=== PATIENT | male | born 1945 | race African-American/Black ===

== ENCOUNTER 2017-09-14 05:48 | Inpatient (IN) | payer MEDICARE ==
[2017-09-13 15:19] VITALS: BMI 25.0
[2017-09-14] MEDS ORDERED: CEFAZOLIN/Water 2 GM/20 ML SYRINGE ONE (06:33)
[2017-09-14] MEDS ORDERED: Protamine Sulfate 50 MG/5 ML VIAL ONE ×3 (06:38→14:55)
[2017-09-14] MEDS ORDERED: Heparin 5,000 UNITS/ML VIAL ONE (06:38)
[2017-09-14 06:51] LABS: #Basophils 0.1 thou/uL (0.0-0.2); #Eosinphils 0.3 thou/uL (0.0-0.7); #Lymphocytes 1.8 thou/uL (1.20-3.40); #Monocytes 0.6 thou/uL (0.11-0.59); #Neutrophils 7.1 thou/uL (1.40-6.50); %Basophils 0.5 % (0.0-1.0); %Eosinophils 2.8 % (0.0-10.0); %Lymphocytes 18.2 % (21.0-51.0); %Monocytes 5.7 % (0.0-10.0); %Neutrophils 72.7 % (42.0-75.0); Hemoglobin 11.9 g/dL (14.0-18.0); Mean Corpuscular HGB CONC 32.6 g/dL (32.0-36.0); Mean Corpuscular Volume 88.8 fl (80.0-94.0); Mean Platelet Volume 8.3 fL (7.4-10.4); Platelet Count 261 thou/uL (130-400); RBC Distribution Width 11.6 % (11.5-14.5); White Blood Cell (WBC) Count 9.8 thou/uL (4.8-10.8)
[2017-09-14 07:03] LABS: INR-International Normal Ratio 1.1; Prothrombin Time 14.5 SEC (12.0-14.7)
[2017-09-14 07:04] LABS: PTT 41.8 SEC (22.9-36.1)
[2017-09-14 07:15] LABS: Anion Gap 14 mmol/L (10-20); BUN (Urea Nitrogen) 13 mg/dL (8.4-25.7); Calc. Creatinine Clearance 52 mL/min (70-130); Calcium 9.4 mg/dL (7.8-10.44); Carbon Dioxide 25 mmol/L (23-31); Chloride 103 mmol/L (98-107); Estimated GFR-MDRD 64; Glucose 110 mg/dL (83-110); Sodium 138 mmol/L (136-145)
[2017-09-14] MEDS ORDERED: Fentanyl 100 MCG/2 ML VIAL ONE ×3 (07:20→11:09)
[2017-09-14] MEDS ORDERED: metroNIDAZOLE 500 MG/100 ML BAG ONE (07:20)
--- NOTE | 2017-09-14 07:58 | RAD ---
PA AND LATERAL CHEST: History: Pre-operative evaluation. FINDINGS: Comparison made with 2006. The heart size is normal. The aorta is tortuous. No confluent areas of consolidation, pneumothorax, o r pleural effusion are seen. Degenerative change of the spine. IMPRESSION: No radiographic evidence of acute cardiopulmonary process. POS: ALAYNAH
[2017-09-14] MEDS ORDERED: Heparin 10,000 UNITS/1 ML VIAL ONE (07:59)
[2017-09-14] MEDS ORDERED: Naloxone HCl 0.4 mg/ml Vial IV PRN (09:56)
[2017-09-14] MEDS ORDERED: diphenhydrAMINE 50 MG/ML VIAL IM PRN (09:56)
[2017-09-14] MEDS ORDERED: Promethazine HCl 25 MG/ML VIAL SLOW IVP PRN (09:56)
[2017-09-14] MEDS ORDERED: diphenhydrAMINE 25 MG CAP PO PRN (09:56)
[2017-09-14] MEDS ORDERED: Fentanyl 5000 MCG/250 ML CADD IVPB PRN (09:56)
[2017-09-14] MEDS ORDERED: Ondansetron HCl/PF 4 MG/2 ML Vial IVP PRN ×2 (09:56)
[2017-09-14] MEDS ORDERED: Promethazine HCl 25 MG/ML VIAL IM PRN ×3 (09:56→13:04)
[2017-09-14] MEDS ORDERED: Zolpidem Tartrate 5 MG TAB PO PRN (09:56)
[2017-09-14] MEDS ORDERED: diphenhydrAMINE 50 MG/ML VIAL IVP PRN (09:56)
[2017-09-14] MEDS ORDERED: Morphine Sulfate 2 MG/ML SYRINGE SLOW IVP PRN (09:56)
[2017-09-14] MEDS ORDERED: Communication Order-Pharmacy FS SCH (10:00)
--- NOTE | 2017-09-14 11:40 | OP ---
DATE OF OPERATION: 09/14/2017 PREOPERATIVE DIAGNOSIS: Peripheral vascular disease. POSTOPERATIVE DIAGNOSIS: Peripheral vascular disease. PROCEDURES: 1. Aorto left external iliac and right common femoral artery bypass utilizing a 16 x 8 Hemashield bi furcated graft. 2. Right common femoral and profunda femoris endarterectomy. SURGEON: Scott Miranda M.D. and Fransisco De La Torre M.D. ANESTHESIA: General endotracheal. ESTIMATED BLOOD LOSS: 200 mL. FLUIDS: 2 liters of crystalloid. CELL SAVER: None. TRANSFUSIONS: None. DESCRIPTION OF PROCEDURE: After consent was obtained, the patient was brought to the operating room and placed in the supine position on the operating room table. Appropriate anesthetic monitor was pl aced and general endotracheal anesthesia induced. Abdomen and groins were prepped and draped in usua l sterile fashion. Right femoral artery was approached in a vertical fashion. The common femoral, p rofunda femoris, and superficial femoral arteries were serially exposed. A tunnel was begun under th e inguinal ligament. Midline abdominal incision was created from xiphoid to lower abdomen. Dissecti on through the fascia was obtained with electrocautery. Peritoneum was sharply entered and this tatum toneal incision extended for the full length of the fascial incision. Bookwalter retractor was used for retraction. The abdomen was explored. There was no colonic mass. There were no gallstones. Li randy had no mass. Small bowel was delivered to the right. The duodenum was dissected off the anterio r surface of the aorta with a low electrocautery. The aorta was exposed circumferentially at the lev el of the renal arteries. The exposure was then carried down toward the aortic bifurcation. The lef t iliac artery was exposed down to its bifurcation. A tunnel was created from the groin up to the ab dominal cavity with ring forceps. The patient was given 10,000 units of heparin. After 3 minutes, t he aorta was clamped. Distal aorta was clamped. The aorta was divided just above the inferior mesen teric artery and closed with running 3-0 Prolene suture. The proximal aorta was heavily diseased. T he disease was cleared and the aorta burped. A 16 x 8 Hemashield graft was selected and cut to appro priate bevel to shape. This was sewn in place with running 4-0 Prolene suture. At completion, there was good hemostasis. The aorta was again burped and allowed to flush through the graft limbs. The graft limbs were then flushed. Left limb was cut to appropriate length to allow for distal bypass at the iliac bifurcation. The iliac artery was divided and the proximal iliac closed with running 4-0 Prolene suture. Anastomosis was created with a running 4-0 Prolene suture. Two sutures were placed for hemostasis. Flow was reestablished to the left leg. The right limb of the graft was tunneled in to the groin. Common femoral artery was opened and extended down across the profunda. Endarterectom y was performed with mosquito hemostats. A good tapered distal endpoint was obtained in the profunda . A running 5-0 Prolene anastomosis was created between the graft and femoral artery. At completion , 2 sutures were placed for hemostasis. Flow was reestablished to the right leg. Protamine was admi nistered. Hemostasis was ensured. The groin was closed in layers and Dermabond applied to the skin. The graft was re-retroperitonealized with running 2-0 Vicryl. The abdomen was irrigated. Fascia w as closed with loop #1 PDS suture and then wound closed in layers. Dermabond was applied to the skin . The patient was awakened, extubated, and transferred to the recovery room in stable condition. Ne edle, sponge, and instrument counts were all reported as correct.
[2017-09-14] MEDS ORDERED: Fentanyl CADD 250 ML ONE (11:53)
[2017-09-14] MEDS ORDERED: Acetaminophen 325 MG TAB PO PRN (13:04)
[2017-09-14] MEDS ORDERED: DOPamine 400 MG/D5W 250 ML 250 ML IVPB PRN (13:04)
[2017-09-14] MEDS ORDERED: Nitroglycerin 50 MG/250 ML BOT 250 ML IVPB PRN (13:04)
[2017-09-14] MEDS ORDERED: Promethazine HCl 25 MG/ML VIAL PR PRN (13:04)
[2017-09-14] MEDS ORDERED: Ondansetron HCl/PF 4 MG/2 ML Vial ONE (14:55)
[2017-09-14] MEDS ORDERED: PROPOFOL 200 MG/20 ML VIAL ONE (14:55)
[2017-09-14] MEDS ORDERED: Lidocaine 1% PF 5 ML VIAL ONE (14:55)
[2017-09-14] MEDS ORDERED: PHENYLEPHRINE-NS 100 MCG/ML 10 ML SYRINGE ONE (14:55)
[2017-09-14] MEDS ORDERED: Heparin 10,000 UNITS/ 10 ML VIAL ONE (14:55)
[2017-09-14] MEDS ORDERED: ePHEDrine/0.9% NaCl/PF SYRINGE 50 mg/10 ml ONE (14:55)
[2017-09-14] MEDS ORDERED: Dexamethasone 20 MG/5 ML VIAL ONE (14:55)
[2017-09-14] MEDS ORDERED: Ketorolac Tromethamine 30 MG/ML VIAL ONE (14:55)
[2017-09-14] MEDS ORDERED: Glycopyrrolate 0.2 MG/ML 5 ML SYRINGE ONE (14:55)
[2017-09-14] MEDS: D5 1/2 NS w/20 mEq KCL 1,000 ML IV SCH ×2 (16:08→22:54)
[2017-09-14] MEDS: CEFAZOLIN/Water 2 GM/20 ML SYRINGE SLOW IVP SCH ×2 (16:09→21:04)
[2017-09-15 05:34] LABS: #Lymphocytes 1.3 thou/uL (1.20-3.40); #Monocytes 0.9 thou/uL (0.11-0.59); %Basophils 0.1 % (0.0-1.0); %Eosinophils 0.1 % (0.0-10.0); %Lymphocytes 12.9 % (21.0-51.0); %Monocytes 8.8 % (0.0-10.0); %Neutrophils 78.2 % (42.0-75.0); Hemoglobin 10.2 g/dL (14.0-18.0); Mean Corpuscular HGB CONC 32.2 g/dL (32.0-36.0); Mean Corpuscular Hemoglobin 28.8 pg (27.0-31.0); Mean Corpuscular Volume 89.3 fl (80.0-94.0); Mean Platelet Volume 8.2 fL (7.4-10.4); Platelet Count 193 thou/uL (130-400); RBC Distribution Width 11.6 % (11.5-14.5); Red Blood Cell (RBC) Count 3.53 mill/uL (4.70-6.10); White Blood Cell (WBC) Count 10.3 thou/uL (4.8-10.8)
[2017-09-15 05:45] LABS: Anion Gap 10 mmol/L (10-20); BUN (Urea Nitrogen) 27 mg/dL (8.4-25.7); Calc. Creatinine Clearance 37 mL/min (70-130); Carbon Dioxide 26 mmol/L (23-31); Chloride 106 mmol/L (98-107); Estimated GFR-MDRD 43; Glucose 142 mg/dL (83-110); Potassium 4.9 mmol/L (3.5-5.1); Sodium 137 mmol/L (136-145)
[2017-09-15] MEDS: CEFAZOLIN/Water 2 GM/20 ML SYRINGE SLOW IVP SCH (06:22)
[2017-09-15] MEDS: HYDROcodone/Acetaminophen 5/325 mg Tablet PO PRN ×2 (08:12→17:58)
[2017-09-15] MEDS ORDERED: Sotalol HCl 80 MG TAB PO SCH ×2 (09:00→21:00)
--- NOTE | 2017-09-15 12:22 | PDOC.CTH ---
<AldairEleni - Last Filed: 09/15/17 12:42> Cardiology Progress Note - Subjective The pt seen and examined. No overnight events. No cardiac complaints. He is on Fentanyl DEPARTMENT STORE GENERAL MANAGER for post-op pain - Objective Vital Signs Temp Pulse Pulse Pulse Pulse Pulse Resp 09/15/17 11:00 66 69 66 66 09/15/17 09:31 68 09/15/17 08:00 98.9 F 68 16 09/15/17 07:00 98.9 F 09/15/17 03:00 98.4 F BP BP BP BP Pulse Ox Pulse Ox 09/15/17 11:00 151/68 H 155/67 H 192/84 H 169/75 H 95 09/15/17 09:31 09/15/17 08:00 96 09/15/17 07:00 09/15/17 03:00 Weight 164 lb 14.492 oz 09/14/17 09/15/17 09/16/17 06:59 06:59 06:59 Intake Total 1500 250 Output Total 750 30 Balance 750 220 - Physical Examination General/Neuro: alert & oriented x3 Neck: no JVD present Lungs: CTA Heart: other: Abdomen: soft Extremities: other: (2+ bilat dorsalis pedis, 1+ bilat popleteal;) - Telemetry Telemetry Rhythm: SR & intermitten Afib 60' - Labs Result Diagrams: 09/15/17 05:07 09/15/17 05:07 - Assessment/Plan 1. Severe PAD with S/P Aorto Lt external Iliac and Rt commond Fem Artery bypass & Rt common Fem and profunda femoris endarterectomy on 09/14/17 - stable with Fentaly DEPARTMENT STORE GENERAL MANAGER; managed by CV surgeon. 2. Paroxysmal Afib - SR with Intermittent Afib HR 60s. on ASA at this time. Asymptomatic. Cont. monitor on tele 3. HTN - Stable with current medication; cont. monitor 4. Hyperlipidemia - on Statin; 5. s/p Rt CEA in 2000 - stable; cont. monitor 6. JACE - BUN 27 and Cr 1.88; Instructed the pt to drink more fluid today; will check BMP tomorrow AM; MAR reviewed Review of Systems - Review of Systems Constitutional: reports: see HPI EENTM: reports: no symptoms reported Respiratory: reports: no symptoms reported Cardiac (ROS): reports: no symptoms reported ABD/GI: reports: no symptoms reported : reports: no symptoms reported Musculoskeletal: reports: see HPI <Jemal Hearn - Last Filed: 09/15/17 18:34> Cardiology Progress Note - Objective Vital Signs Temp Pulse Pulse Pulse Pulse Pulse Resp 09/15/17 11:00 66 69 66 66 09/15/17 09:31 68 09/15/17 08:00 98.9 F 68 16 09/15/17 07:00 98.9 F BP BP BP BP Pulse Ox Pulse Ox 09/15/17 11:00 151/68 H 155/67 H 192/84 H 169/75 H 95 09/15/17 09:31 09/15/17 08:00 96 09/15/17 07:00 Weight 164 lb 14.492 oz 09/14/17 09/15/17 09/16/17 06:59 06:59 06:59 Intake Total 1500 250 Output Total 750 30 Balance 750 220 - Labs Result Diagrams: 09/15/17 05:07 09/15/17 05:07 - Assessment/Plan Pt. seen and eval. by me. I agree with the A/P by the ART CRITIC. He continues to have some abd. pain and nausea post op.Occasional Afib. but mainly in NSR.Good left pedal pulse , right is still decreased.
[2017-09-15] MEDS: Ondansetron HCl/PF 4 MG/2 ML Vial IVP PRN (17:59)
[2017-09-15] MEDS: Atorvastatin Calcium 10 MG TAB PO SCH (22:06)
[2017-09-15] MEDS: Sotalol HCl 80 MG TAB PO SCH (22:06)
[2017-09-16 05:34] LABS: Anion Gap 9 mmol/L (10-20); BUN (Urea Nitrogen) 20 mg/dL (8.4-25.7); Calc. Creatinine Clearance 42 mL/min (70-130); Calcium 8.2 mg/dL (7.8-10.44); Carbon Dioxide 25 mmol/L (23-31); Chloride 105 mmol/L (98-107); Estimated GFR-MDRD 50; Glucose 95 mg/dL (83-110); Potassium 4.4 mmol/L (3.5-5.1); Sodium 135 mmol/L (136-145)
[2017-09-16] MEDS: Sotalol HCl 80 MG TAB PO SCH ×2 (09:04→20:58)
--- NOTE | 2017-09-16 09:57 | PDOC.CTH ---
<Eleni Quinteros - Last Filed: 09/16/17 09:54> Cardiology Progress Note - Subjective The pt seen and examined. No overnight events. No cardiac complaints. Still complains of pain at ABD with movement. - Objective Vital Signs Temp Pulse Resp BP BP Pulse Ox 09/16/17 09:04 107 H 158/72 H 09/16/17 05:00 98.1 F 105 H 20 141/67 H 92 L 09/16/17 00:10 80 18 137/67 09/15/17 22:06 85 137/64 Weight 163 lb 4.8 oz 09/15/17 09/16/17 09/17/17 06:59 06:59 06:59 Intake Total 1500 813 Output Total 750 980 Balance 750 -167 - Physical Examination General/Neuro: alert & oriented x3 Neck: no JVD present Lungs: CTA Heart: other: (irregualr) Abdomen: soft Extremities: other: (2+ pulses BLE;) - Telemetry Telemetry Rhythm: Afib/Aflutter HR 90-120s - Labs Result Diagrams: 09/15/17 05:07 09/16/17 04:21 - Assessment/Plan 1. Severe PAD with S/P Aorto Lt external Iliac and Rt common Fem Artery bypass & Rt common Fem and profunda femoris endarterectomy on 09/14/17 - stable with Fentaly INFORMATION RESOURCES DIRECTOR; managed by CV surgeon. 2. Paroxysmal Afib - AFib/AFlutter with HR 90-120s since 0300 this AM; Increase Stalol from 80mg BID to 120mg BID; on ASA at this time. Asymptomatic. Cont. monitor on tele; Refer to EP 3. HTN - Stable with current medication; cont. monitor 4. Hyperlipidemia - on Statin; 5. s/p Rt CEA in 2000 - stable; cont. monitor 6. JACE - Cr 1.65 from 1.88 yesterday; Instructed the pt to drink more fluid today; MAR reviewed Review of Systems - Review of Systems EENTM: reports: no symptoms reported Respiratory: reports: no symptoms reported Cardiac (ROS): reports: no symptoms reported ABD/GI: reports: see HPI : reports: no symptoms reported Musculoskeletal: reports: no symptoms reported <Jemal Hearn - Last Filed: 09/16/17 17:22> Cardiology Progress Note - Objective Vital Signs Pulse BP 09/16/17 09:04 107 H 158/72 H Weight 163 lb 4.8 oz 09/15/17 09/16/17 09/17/17 06:59 06:59 06:59 Intake Total 1500 813 Output Total 750 980 Balance 750 -167 - Labs Result Diagrams: 09/15/17 05:07 09/16/17 04:21 - Assessment/Plan The pt. was seen and eval. by me. I agree with the a/P by the [employer] P[employer]. He remains in atrial fib. despite the increase in Sotalol. I will plan for Lovenox this PM and cardioversion in AM if he does not convert over night.
[2017-09-16] MEDS ORDERED: Sotalol HCl 80 MG TAB PO SCH (10:00)
[2017-09-16] MEDS: Atorvastatin Calcium 10 MG TAB PO SCH (20:58)
[2017-09-16] MEDS: Enoxaparin Sodium 80 MG/0.8 ML SYRINGE SC SCH (20:59)
[2017-09-17] MEDS: hydrALAZINE 20 MG/ML VIAL SLOW IVP PRN ×2 (00:15→21:42)
[2017-09-17 05:14] LABS: Hemoglobin 9.2 g/dL (14.0-18.0); Platelet Count 157 thou/uL (130-400)
--- NOTE | 2017-09-17 06:16 | CON ---
ELECTROPHYSIOLOGY CONSULTATION REPORT DATE OF CONSULTATION: 09/16/2017 REFERRING PHYSICIAN: Dori Hearn M.D. [facility]. His problems are: 1. Paroxysmal atrial fibrillation. A. Prior suppression of sotalol and Eliquis. B. History of JENNIE guided cardioversion on 02/05/2016. C. Recurrent atrial fibrillation/flutter noted postoperatively on current admission after peripheral bypass surgery. 2. History of preserved LVEF with LVEF of 60% to 65%, no significant valvular heart disease, no thrombus, no prior JENNIE. 3. History of nonocclusive coronary disease by left heart catheterization in . 4. Peripheral vascular disease with history of 80% right internal carotid artery stenosis, status post right carotid endarterectomy and now status post right femoral bypass surgery. 5. Acute kidney injury with BUN 27, creatinine 1.88. ALLERGIES: CODEINE and NIACIN. MEDICATIONS: Prior to this admission reveals sotalol 80 mg in the morning and 40 mg in the afternoon, losartan 1 tablet daily, magnesium 400 mg daily, apixaban one tablet twice a day, zolpidem, Lipitor, cholecalciferol, and amlodipine. SUBJECTIVE: Mr. Whyte is here after an elective peripheral bypass surgery by Dr. Miranda on the . He tolerated the surgery well and now recovering on the floor still requiring opiates for pain control. His rhythm is oscillating between atrial fibrillation/flutter and sinus rhythm. I have consulted Dr. Hearn on the recurrent atrial fibrillation/flutter. The patient is currently not markedly symptomatic. Denies palpitations. Denies chest pain. No fever, chills, cough. Again, he is resume opiates by pump. He has no PND, orthopnea, lower extremity edema, or fluid overload. No fever, chills or cough. REVIEW OF SYSTEMS: The rest of the 12 point system otherwise unremarkable. PAST MEDICAL HISTORY: As above. SOCIAL HISTORY: The patient denies smoking, EtOH or drug use. FAMILY HISTORY: Noncontributory. OBJECTIVE DATA: VITAL SIGNS: Blood pressure currently 158/72, heart rate 107, respirations 20, temperature 98.1 degrees Fahrenheit. GENERAL: He is alert and oriented man in no apparent distress. NECK: Supple. Jugular veins are not distended. CHEST: Coarse without crackles. CARDIAC: Heart sounds are irregularly irregular. S1 and S2 are variable. No murmur or gallop. ABDOMEN: Benign. Bowel sounds positive. EXTREMITIES: Lower extremities without edema, clubbing or cyanosis. The aortobifemoral bypass graft site is healing well. DATABASE: The EKG is reviewed, initially reveals sinus rhythm with QTC is at 470 milliseconds. Subsequent EKG reveals atrial fibrillation/flutter both noted. Rates are varying between 100 and 110. LABORATORY DATA: White count is 10.3, hemoglobin 10.2, platelet count is 193. INR is 1.1 on the 30th. Sodium 135, potassium 4.4, BUN is 20, creatinine is 1.65 today. ASSESSMENT AND PLAN: Mr. Whyte is a pleasant 71-year-old man with prior history of peripheral vascular disease, preserved left ventricular function, paroxysmal atrial fibrillation, currently in for a peripheral bypass surgery. He has been previously suppressed well with sotalol, but had some recurrences when I saw him in the office back in 02/2017. At that point, he preferred to continue medical management and we continued sotalol therapy, although there is some reduced dose because of tendency for bradycardia. Now, he has done well, but now had more recurrences after his peripheral bypass surgery. At this point, likely atrial fibrillations provoked by the postop state. I agreed for increasing sotalol, although cautions should be paid to the borderline renal function. His EKG need to be checked again to avoid and then we will continue monitoring for proarrhythmia. For at least 2 days after the increase, continue anticoagulation has already initiated. If this effort fails , he could be considered for flecainde vs amiodarone vs or dofetilide after washout. Alternatively, we could just consider rate control in the interim. Issues could be prior history of tendency for bradycardia. This gentleman will be likely a reasonable candidate for pulmonary venous isolation after recovery from the bypass surgery. CHAI
[2017-09-17] MEDS: Sotalol HCl 80 MG TAB PO SCH ×2 (10:01→21:38)
[2017-09-17] MEDS: Enoxaparin Sodium 80 MG/0.8 ML SYRINGE SC SCH ×2 (10:01→21:40)
--- NOTE | 2017-09-17 10:41 | PRG ---
DATE OF SERVICE: 09/17/2017 REFERRING PHYSICIAN: Dr. Hearn SUBJECTIVE: Mr. Whyte seems to be doing fair this morning without new symptoms. He continues to have atrial fibrillation though which he has mild discomfort with. He does have still discomfort req uiring pain medications at the surgical site. OBJECTIVE: VITAL SIGNS: Blood pressure is 186/83, heart rate 102, respirations 20, temperature 98.3 degrees Fah renheit. GENERAL: Alert and oriented man in no apparent distress. NECK: Supple. Jugular veins not distended. CHEST: Coarse without crackles. CARDIOVASCULAR: Heart sounds are irregularly irregular. S1, S2, variable. No murmur or gallop. ABDOMEN: Benign. Bowel sounds positive. EXTREMITIES: Lower extremities without edema, clubbing or cyanosis. Right fem-pop site is in bandag es. LABORATORY DATA: The hemoglobin is 9.2 this morning. INR 1.1 on 09/14/2017 and electrolytes with so dium 135, BUN 20, creatinine 1.65, potassium 4.4. Telemetry strips reveals atrial fibrillation with occasional atrial flutter with more rapid rates, bu t this morning he converted to sinus rhythm, but after about an hour he is again back in atrial fibri llation with controlled ventricular rates. The EKGs reviewed reveals no significant prolongation, QTC around 470. ASSESSMENT AND PLAN: Mr. Whyte is a 71-year-old male with history of paroxysmal atrial fibrillati on, previously reasonably suppressed with sotalol low dose, hence he has bradycardic tendencies. On the other hand, now he has undergone an elective peripheral bypass grafting surgery. Postoperatively , he had more recurrence of atrial fibrillation. I do suspect the stress of the surgery might be a c ontributor, although natural progression of atrial fibrillation to a more persisting state also could be a possibility. PLAN: Options this point, continue to attempt to suppress him with initial medications sotalol altho ugh with careful monitoring of his renal function will be necessary, which is borderline, QTCs and to rsades like arrhythmias also might need to be monitored. Nevertheless, the increased sotalol so far has started to take effect with transient sinus rhythm. I discussed the case with Dr. Hearn, again this it is reasonable to attempt to decrease sotalol as abo ve. Alternative would be amiodarone after sotalol washout. Further alternative is allowing him to s deanne in atrial fibrillation with increased ventricular rate control with beta gurvinder or diltiazem as necessary. Later further efforts could be made on maintenance of sinus rhythm and he will likely req uire a pulmonary venous isolation procedure for that. Anticoagulation to resume as possible surgically. Thank you again for allowing me to participate in the care of this patient. We will have to see this gentleman back in the office in the near future.
--- NOTE | 2017-09-17 15:00 | PDOC.CTH ---
Cardiology Progress Note - Subjective No new complaints. Still in and out of sinus to Afib/flutter. No new events over night. - Objective Vital Signs Temp Pulse Resp BP Pulse Ox 09/17/17 11:30 98.8 F 86 20 151/67 H 97 09/17/17 10:01 102 H 09/17/17 08:30 98.3 F 102 H 20 186/83 H 95 09/17/17 08:00 98.8 F 86 20 95 09/17/17 04:29 98.0 F 77 18 142/64 H 97 Weight 163 lb 6.4 oz 09/16/17 09/17/17 09/18/17 06:59 06:59 06:59 Intake Total 813 720 366 Output Total 980 250 Balance -167 720 116 - Physical Examination General/Neuro: alert & oriented x3 Neck: carotid US brisk Lungs: CTA Heart: other: (irreg/irreg) Abdomen: soft - Labs Result Diagrams: 09/17/17 04:23 09/17/17 04:23 - Assessment/Plan 1. Severe PAD with S/P Aorto Lt external Iliac and Rt common Fem Artery bypass & Rt common Fem and profunda femoris endarterectomy on 09/14/17 - stable with Fentaly COMPOSITION MOLDER; managed by CV surgeon. 2. Paroxysmal Afib - AFib/AFlutter with HR 90-120s but overall is better controlled than yesterday.; Increase Sotalol from 80mg BID to 120mg BID; on ASA at this time. Asymptomatic. Cont. monitor on tele; 3. HTN - Stable with current medication; cont. monitor 4. Hyperlipidemia - on Statin; 5. s/p Rt CEA in 2000 - stable; cont. monitor 6. JACE - Cr 1.65 from 1.88 yesterday; Instructed the pt to drink more fluid today; MAR reviewed prob. home on Sat. I will see him back in the office is a couple weeks. Review of Systems - Review of Systems EENTM: reports: no symptoms reported Respiratory: reports: no symptoms reported Cardiac (ROS): reports: no symptoms reported ABD/GI: reports: other (tenderness post op.) Musculoskeletal: reports: no symptoms reported Skin: reports: no symptoms reported Neurological: reports: no symptoms reported
[2017-09-17] MEDS: Atorvastatin Calcium 10 MG TAB PO SCH (21:37)
[2017-09-17] MEDS: HYDROcodone/Acetaminophen 5/325 mg Tablet PO PRN ×2 (21:57→23:55)
[2017-09-18] MEDS ORDERED: Morphine 5 MG/ML SYRINGE SLOW IVP SCH (03:15)
[2017-09-18] MEDS: Ondansetron HCl/PF 4 MG/2 ML Vial IVP PRN (03:36)
[2017-09-18] MEDS ORDERED: Fentanyl 5000 MCG/250 ML CADD IVPB PRN (06:11)
[2017-09-18] MEDS ORDERED: fentaNYL Citrate/PF 2,000 MCG in Sodium Chloride 0.9% 60 ML IV PRN (06:45)
[2017-09-18] MEDS: Apixaban 5 MG TAB PO SCH ×2 (09:05→22:57)
[2017-09-18] MEDS: Sotalol HCl 80 MG TAB PO SCH ×2 (09:05→22:57)
[2017-09-18] MEDS: hydrALAZINE 20 MG/ML VIAL SLOW IVP PRN ×2 (09:06→15:43)
[2017-09-18] MEDS: Cyclobenzaprine 10 MG TAB PO PRN (09:06)
[2017-09-18] MEDS ORDERED: HYDROcodone/Acetaminophen 10/325 mg Tablet PO PRN (10:30)
[2017-09-18] MEDS: HYDROcodone/Acetaminophen 10/325 mg Tablet PO PRN ×4 (10:40→22:58)
[2017-09-18] MEDS ORDERED: Ketorolac Tromethamine 30 MG/ML VIAL IVP SCH (12:00)
--- NOTE | 2017-09-18 18:14 | MRI ---
MRI OF THE LUMBAR SPINE WITHOUT CONTRAST 09/18/17 COMPARISON: 03/14/03. HISTORY: Sudden onset of low back pain and bilateral hip pain. TECHNIQUE: Multiplanar and multisequence MRI images were obtained of the lumbar spine without contrast. FINDINGS: End plate degenerative changes are seen surrounding the L4-5 intervertebral disc. This disc has decre ase in height. The other intervertebral discs are normal in height. The vertebral bodies demonstrate normal alignment without fracture or subluxation. The conus medullaris terminates at normally at T12-L1. There is a nonspecific partially visualized fl uid collection in the lower abdomen and pelvis. This measures at least 7.2 x 7.2 x 3.4 cm in size. Th e paraspinal soft tissues are unremarkable. T12-L1: Unremarkable. L1-2: Unremarkable. L2-3: Unremarkable. L3-4: Unremarkable. L4-5: A small disc osteophyte complex is seen. No posterior facet arthrosis. No neural foraminal sten osis. Moderate bilateral neural foraminal stenosis. L5-S1: No significant bulge or protrusion. Mild right posterior facet arthrosis. No neural foraminal or central canal stenosis. IMPRESSION: 1. Degenerative changes of the lumbar spine as above, greatest at L4-5. 2. Nonspecific fluid collection in the pelvis. This is only partially visualized. A CT of the ab domen and pelvis with contrast is recommended for better evaluation. Code T POS: AMANDA
--- NOTE | 2017-09-18 19:29 | PDOC.PN ---
- Subjective Encounter Start Date: 09/18/17 Encounter Start Time: 19:27 Subjective: seen and examined at bedside.care discussed w Pt and . -: c/o sudden onset of sharp pain in R hip & back last night -: no relief w narcotics so far.started when he was pulled up in bed does not take any pain meds at home. currently pain is better after he took Rodeo. Was started on fentany [employer] which ahs since been stopped. Chart reviewd in detail. IM team consulted for pain management Is S/P Righr Fem-po bypass - Objective MAR Reviewed: Yes Vital Signs & Weight: Vital Signs (12 hours) Temp Pulse Resp BP BP Pulse Ox 09/18/17 15:43 68 09/18/17 15:17 98.3 F 68 16 175/77 H 95 09/18/17 11:40 97.6 F 68 16 166/74 H 97 09/18/17 08:59 97.6 F 68 16 97 09/18/17 08:57 97.7 F 67 18 196/85 H 97 Weight Weight 163 lb 6.4 oz Most Recent Monitor Data Heart Rate from ECG 66 NIBP 142/59 NIBP BP-Mean 79 Respiration from ECG 19 SpO2 93 I&O: 09/17/17 09/18/17 09/19/17 06:59 06:59 06:59 Intake Total 720 366 Output Total 250 Balance 720 116 Result Diagrams: 09/17/17 04:23 09/17/17 04:23 Additional Labs: Laboratory Tests 09/14/17 09/14/17 09/15/17 06:43 06:43 05:07 Hgb 11.9 L Creatinine 1.33 H 1.88 H 09/15/17 09/16/17 09/17/17 05:07 04:21 04:23 Hgb 10.2 L Creatinine 1.65 H 1.27 09/17/17 04:23 Hgb 9.2 L Creatinine Radiology Reviewed by me: Yes (MRI Thoracic & Lumbar spine-no acute chnages) Phys Exam - Physical Examination Constitutional: NAD HEENT: PERRLA, moist MMs, sclera anicteric, oral pharynx no lesions Neck: no nodes, no JVD, supple, full ROM Respiratory: no wheezing, no rales, no rhonchi, clear to auscultation bilateral Cardiovascular: RRR, no significant murmur, no rub, gallop Gastrointestinal: soft, non-tender, no distention, positive bowel sounds abdominal incision well healing Musculoskeletal: no edema, pulses present no swelling or tenderness/erythema R hip or spine Neurological: non-focal, normal sensation, moves all 4 limbs Psychiatric: normal affect, A&O x 3 Skin: no rash Dx/Plan (1) Acute back pain Code(s): M54.9 - DORSALGIA, UNSPECIFIED Status: Acute Qualifiers: Back pain location: low back pain Back pain laterality: right (2) JACE (acute kidney injury) Code(s): N17.9 - ACUTE KIDNEY FAILURE, UNSPECIFIED Status: Acute (3) Blood loss anemia Code(s): D50.0 - IRON DEFICIENCY ANEMIA SECONDARY TO BLOOD LOSS (CHRONIC) Status: Acute (4) Atrial flutter Code(s): I48.92 - UNSPECIFIED ATRIAL FLUTTER Status: Chronic Comment: controlled on Sotalol.on Eliquis.cardiology following.EP following (5) PVD (peripheral vascular disease) Code(s): I73.9 - PERIPHERAL VASCULAR DISEASE, UNSPECIFIED Status: Acute (6) S/P femoral-popliteal bypass surgery Code(s): Z95.828 - PRESENCE OF OTHER VASCULAR IMPLANTS AND GRAFTS Status: Acute - Plan PT/OT, out of bed/ambulate, DVT proph w/SCDs MRI done & results reviewe. no acute pathology.suspect sciatica Vs myalgia -: will cont Flexeril w Rodeo for now & DC all other narcotics/ -: will consult Pain medicine for pain management. -: cont rest of meds as per below. -: will follow. Monitor H/H. * .? may benefit from Neurontin if nerve pain.will defer to pain Medicine. Review of Systems - Review of Systems Constitutional: negative: fever, chills, sweats, weakness, malaise, other ENT: negative: Ear Pain, Ear Discharge, Nose Pain, Nose Discharge, Nose Congestion, Mouth Pain, Mouth Swelling, Throat Pain, Throat Swelling, Other Respiratory: negative: Cough, Dry, Shortness of Breath, Hemoptysis, SOB with Excertion, Pleuritic Pain, Sputum, Wheezing Cardiovascular: negative: chest pain, palpitations, orthopnea, paroxysmal nocturnal dyspnea, edema, light headedness, other Gastrointestinal: negative: Nausea, Vomiting, Abdominal Pain, Diarrhea, Constipation, Melena, Hematochezia, Other Genitourinary: negative: Dysuria, Frequency, Incontinence, Hematuria, Retention , Other Musculoskeletal: Back Pain. negative: Neck Pain, Shoulder Pain, Arm Pain, Hand Pain, Leg Pain, Foot Pain, Other Skin: negative: Rash, Lesions, David, Bruising, Other Neurological: negative: Weakness, Numbness, Incoordination, Change in Speech, Confusion, Seizures, Other - Medications/Allergies Allergies/Adverse Reactions: Allergies Allergy/AdvReac Type Severity Reaction Status Date / Time codeine Allergy Verified 09/13/17 15:17 niacin Allergy Verified 09/13/17 15:19 Medications: Current Medications Acetaminophen (Tylenol) 650 mg PO Q4H PRN PRN Reason: Fever > 101.5,RAY, or mild pain Hydrocodone Bitart/Acetaminophen ([place] 10/325) 1 tab PO Q4H PRN PRN Reason: PAIN SCALE 1-4 Hydrocodone Bitart/Acetaminophen ([place] 10/325) 2 tab PO Q4H PRN PRN Reason: PAIN SCALE 5-10 Last Admin: 09/18/17 18:54 Dose: 2 tab Albuterol/Ipratropium (Duoneb) 3 ml NEB [id number] PRN PRN Reason: Wheezing Apixaban (Eliquis) 5 mg PO BID [facility] Last Admin: 09/18/17 09:05 Dose: 5 mg Aspirin (Aspirin Chewable) 81 mg PO QAM [facility] Last Admin: 09/18/17 09:05 Dose: 81 mg Atorvastatin Calcium (Lipitor) 10 mg PO HS [facility] Last Admin: 09/17/17 21:37 Dose: 10 mg Cholecalciferol (Vitamin D3) 1,000 units PO DAILY [facility] Last Admin: 09/18/17 09:05 Dose: 1,000 units Cyclobenzaprine HCl (Flexeril) 10 mg PO TID PRN PRN Reason: Muscle Spasm Last Admin: 09/18/17 09:06 Dose: 10 mg Hydralazine HCl (Apresoline) 10 mg SLOW IVP Q6H PRN PRN Reason: To Keep SBP < 140 mmHG Last Admin: 09/18/17 15:43 Dose: 10 mg Losartan Potassium (Cozaar) 50 mg PO DAILY [facility] Naloxone HCl (Narcan) 0.2 mg IV Q5MIN PRN PRN Reason: Opiate Reversal Ondansetron HCl (Zofran) 4 mg IVP Q6H PRN PRN Reason: Nausea/Vomiting Last Admin: 09/18/17 03:36 Dose: 4 mg Pantoprazole Sodium (Protonix) 40 mg PO DAILY [facility] Last Admin: 09/18/17 09:05 Dose: 40 mg Sodium Chloride (Flush - Normal Saline) 10 ml IVF Q12HR [facility] Last Admin: 09/18/17 09:00 Dose: Not Given Sodium Chloride (Flush - Normal Saline) 10 ml IVF PRN PRN PRN Reason: Saline Flush Sotalol HCl (Betapace) 120 mg PO BID [facility] Last Admin: 09/18/17 09:05 Dose: 120 mg Trazodone HCl (Desyrel) 50 mg PO HS PRN PRN Reason: Insomnia
[2017-09-18] MEDS: Atorvastatin Calcium 10 MG TAB PO SCH (22:57)
[2017-09-18] MEDS: traZODone HCl 50 MG TAB PO PRN (22:58)
[2017-09-19] MEDS: HYDROcodone/Acetaminophen 10/325 mg Tablet PO PRN ×3 (03:45→21:36)
[2017-09-19 05:10] LABS: Hemoglobin 7.9 g/dL (14.0-18.0); Platelet Count 195 thou/uL (130-400)
[2017-09-19 05:33] LABS: Anion Gap 13 mmol/L (10-20); BUN (Urea Nitrogen) 31 mg/dL (8.4-25.7); Calc. Creatinine Clearance 33 mL/min (70-130); Calcium 8.8 mg/dL (7.8-10.44); Carbon Dioxide 24 mmol/L (23-31); Chloride 104 mmol/L (98-107); Estimated GFR-MDRD 38; Glucose 119 mg/dL (83-110); Sodium 137 mmol/L (136-145)
[2017-09-19] MEDS ORDERED: Losartan 25 MG TAB PO SCH (09:00)
[2017-09-19] MEDS: Apixaban 5 MG TAB PO SCH (09:26)
[2017-09-19] MEDS: Sodium Chloride 0.9% 1,000 ML IV SCH ×2 (09:26→21:57)
[2017-09-19] MEDS: Sotalol HCl 80 MG TAB PO SCH ×2 (09:37→21:36)
[2017-09-19] MEDS ORDERED: Sotalol HCl 80 MG TAB PO SCH ×2 (10:25→10:45)
--- NOTE | 2017-09-19 13:48 | CT ---
CT ABDOMEN AND PELVIS NONCONTRAST: HISTORY: Abdominal pain. Anemia. FINDINGS: Each renal collecting system, ureter, and the urinary bladder are decompressed without stone apparent . A small amount of gas within the upper abdomen is consistent with recent arterial bypass procedure . Gas within the urinary bladder is likely related to recent catheterization. Lack of contrast limits evaluation for other abnormalities. Calcifications within the liver are cons istent with healed granulomatous disease. Postoperative changes of the retroperitoneum are apparent. Just anterior to the lower abdominal aort a and bifurcation is a lobular heterogeneous slightly hyperdense lesion having the appearance of a he matoma measuring up to 9.4 cm length x 6.2 cm depth x 5.1 cm width. From the right inferior margin o f it arises the right femoral bypass graft. A very small hematoma is present at the femoral graft in sertion. There is subtle stranding in the abdominal and retroperitoneal fat around the suspected hem atoma. Degenerative changes involve the lumbar spine. IMPRESSION: Postoperative changes of the abdomen. Lobulated abnormality suspected to be a hematoma at the origin of the right femoral arterial graft is as detailed above. POS: AMANDA
--- NOTE | 2017-09-19 14:26 | PDOC.PN ---
- Subjective Encounter Start Date: 09/19/17 Encounter Start Time: 14:24 Subjective: feels better .pain improved but sometimes comes back - Objective MAR Reviewed: Yes Vital Signs & Weight: Vital Signs (12 hours) Temp Pulse Resp BP BP Pulse Ox 09/19/17 11:33 97.9 F 58 L 16 117/56 L 97 09/19/17 09:21 97.2 F L 62 18 146/64 H 95 09/19/17 08:00 97.9 F 58 L 16 95 09/19/17 04:00 97.9 F 62 18 110/57 L 99 Weight Weight 164 lb 12.8 oz Most Recent Monitor Data Heart Rate from ECG 66 NIBP 142/59 NIBP BP-Mean 79 Respiration from ECG 19 SpO2 93 I&O: 09/18/17 09/19/17 09/20/17 06:59 06:59 06:59 Intake Total 366 Output Total 250 Balance 116 Result Diagrams: 09/19/17 04:23 09/19/17 04:23 Additional Labs: Laboratory Tests 09/14/17 09/15/17 09/16/17 06:43 05:07 04:21 Creatinine 1.33 H 1.88 H 1.65 H 09/17/17 09/19/17 04:23 04:23 Creatinine 1.27 2.08 H Radiology Reviewed by me: Yes (CT A/P-hematoma at Fem-pop bypass graft) Phys Exam - Physical Examination Constitutional: NAD HEENT: PERRLA, moist MMs, sclera anicteric, oral pharynx no lesions Neck: no nodes, no JVD, supple, full ROM Respiratory: no wheezing, no rales, no rhonchi, clear to auscultation bilateral Cardiovascular: RRR, no significant murmur Gastrointestinal: soft, non-tender, no distention, positive bowel sounds no guarding.rigidity Musculoskeletal: no edema, pulses present Neurological: non-focal, normal sensation, moves all 4 limbs Psychiatric: normal affect, A&O x 3 Skin: no rash Dx/Plan (1) Acute back pain Code(s): M54.9 - DORSALGIA, UNSPECIFIED Status: Acute Qualifiers: Back pain location: low back pain Back pain laterality: right (2) JACE (acute kidney injury) Code(s): N17.9 - ACUTE KIDNEY FAILURE, UNSPECIFIED Status: Acute (3) Blood loss anemia Code(s): D50.0 - IRON DEFICIENCY ANEMIA SECONDARY TO BLOOD LOSS (CHRONIC) Status: Acute (4) Atrial flutter Code(s): I48.92 - UNSPECIFIED ATRIAL FLUTTER Status: Chronic Comment: controlled on Sotalol.on Eliquis.cardiology following.EP following (5) PVD (peripheral vascular disease) Code(s): I73.9 - PERIPHERAL VASCULAR DISEASE, UNSPECIFIED Status: Chronic (6) S/P femoral-popliteal bypass surgery Code(s): Z95.828 - PRESENCE OF OTHER VASCULAR IMPLANTS AND GRAFTS Status: Acute Comment: 09/14/17 - Plan PT/OT, DVT proph w/SCDs Pt w further drop in Hb & w H/O AP,CT obtained -: hematoma at bypass graft site. will hold eliquis for now -: will notify Dr. Miranda.stat H/h and monitor q6h -: renal Fx worse today.toradol stopped yesterday. start gentle IVF.monitor -: MRI spine w/o any nerve root compression. * .AM labs. will follow Review of Systems - Review of Systems Constitutional: weakness, malaise. negative: fever, chills, sweats, other Respiratory: negative: Cough, Dry, Shortness of Breath, Hemoptysis, SOB with Excertion, Pleuritic Pain, Sputum, Wheezing Cardiovascular: negative: chest pain, palpitations, orthopnea, paroxysmal nocturnal dyspnea, edema, light headedness, other Gastrointestinal: negative: Nausea, Vomiting, Abdominal Pain, Diarrhea, Constipation, Melena, Hematochezia, Other Genitourinary: negative: Dysuria, Frequency, Incontinence, Hematuria, Retention , Other Musculoskeletal: negative: Neck Pain, Shoulder Pain, Arm Pain, Back Pain, Hand Pain, Leg Pain, Foot Pain, Other Neurological: negative: Weakness, Numbness, Incoordination, Change in Speech, Confusion, Seizures, Other - Medications/Allergies Allergies/Adverse Reactions: Allergies Allergy/AdvReac Type Severity Reaction Status Date / Time codeine Allergy Verified 09/13/17 15:17 niacin Allergy Verified 09/13/17 15:19 Medications: Current Medications Acetaminophen (Tylenol) 650 mg PO Q4H PRN PRN Reason: Fever > 101.5,RAY, or mild pain Hydrocodone Bitart/Acetaminophen ([place] 10/325) 1 tab PO Q4H PRN PRN Reason: PAIN SCALE 1-4 Hydrocodone Bitart/Acetaminophen ([place] 10/325) 2 tab PO Q4H PRN PRN Reason: PAIN SCALE 5-10 Last Admin: 09/19/17 03:45 Dose: 2 tab Albuterol/Ipratropium (Duoneb) 3 ml NEB [id number] PRN PRN Reason: Wheezing Aspirin (Aspirin Chewable) 81 mg PO QAM [facility] Last Admin: 09/19/17 09:26 Dose: 81 mg Atorvastatin Calcium (Lipitor) 10 mg PO HS [facility] Last Admin: 09/18/17 22:57 Dose: 10 mg Cholecalciferol (Vitamin D3) 1,000 units PO DAILY [facility] Last Admin: 09/19/17 09:26 Dose: 1,000 units Cyclobenzaprine HCl (Flexeril) 10 mg PO TID PRN PRN Reason: Muscle Spasm Last Admin: 09/18/17 09:06 Dose: 10 mg Hydralazine HCl (Apresoline) 10 mg SLOW IVP Q6H PRN PRN Reason: To Keep SBP < 140 mmHG Last Admin: 09/18/17 15:43 Dose: 10 mg Sodium Chloride (Normal Saline 0.9%) 1,000 mls @ 75 mls/hr IV .[id number] [facility] Last Admin: 09/19/17 09:26 Dose: 1,000 mls Naloxone HCl (Narcan) 0.2 mg IV Q5MIN PRN PRN Reason: Opiate Reversal Ondansetron HCl (Zofran) 4 mg IVP Q6H PRN PRN Reason: Nausea/Vomiting Last Admin: 09/18/17 03:36 Dose: 4 mg Pantoprazole Sodium (Protonix) 40 mg PO DAILY [facility] Last Admin: 09/19/17 09:26 Dose: 40 mg Sodium Chloride (Flush - Normal Saline) 10 ml IVF Q12HR [facility] Last Admin: 09/19/17 09:27 Dose: 10 ml Sodium Chloride (Flush - Normal Saline) 10 ml IVF PRN PRN PRN Reason: Saline Flush Sotalol HCl (Betapace) 120 mg PO BID [facility] Trazodone HCl (Desyrel) 50 mg PO HS PRN PRN Reason: Insomnia Last Admin: 09/18/17 22:58 Dose: 50 mg
[2017-09-19 15:01] LABS: Hemoglobin 8.3 g/dL (14.0-18.0)
[2017-09-19] MEDS: Cyclobenzaprine 10 MG TAB PO PRN (17:10)
[2017-09-19] MEDS ORDERED: Polyethylene Glycol 3350 17 GM Packet PO SCH (20:15)
[2017-09-19 20:49] LABS: Hemoglobin 7.9 g/dL (14.0-18.0)
[2017-09-19] MEDS: traZODone HCl 50 MG TAB PO PRN (21:37)
[2017-09-19] MEDS: Atorvastatin Calcium 10 MG TAB PO SCH (21:37)
[2017-09-20] MEDS: HYDROcodone/Acetaminophen 10/325 mg Tablet PO PRN ×2 (02:48→07:32)
[2017-09-20] MEDS: Cyclobenzaprine 10 MG TAB PO PRN ×2 (02:48→14:23)
[2017-09-20] MEDS: Ondansetron HCl/PF 4 MG/2 ML Vial IVP PRN (03:34)
[2017-09-20 05:12] LABS: #Eosinphils 0.4 thou/uL (0.0-0.7); #Lymphocytes 0.9 thou/uL (1.20-3.40); #Monocytes 0.8 thou/uL (0.11-0.59); #Neutrophils 5.9 thou/uL (1.40-6.50); %Basophils 0.2 % (0.0-1.0); %Eosinophils 4.5 % (0.0-10.0); %Lymphocytes 11.7 % (21.0-51.0); %Monocytes 9.7 % (0.0-10.0); Hemoglobin 7.3 g/dL (14.0-18.0); Mean Corpuscular HGB CONC 32.6 g/dL (32.0-36.0); Mean Corpuscular Hemoglobin 28.9 pg (27.0-31.0); Mean Corpuscular Volume 88.6 fl (80.0-94.0); Mean Platelet Volume 8.4 fL (7.4-10.4); Platelet Count 194 thou/uL (130-400); RBC Distribution Width 11.2 % (11.5-14.5); Red Blood Cell (RBC) Count 2.52 mill/uL (4.70-6.10)
[2017-09-20 05:46] LABS: Anion Gap 13 mmol/L (10-20); BUN (Urea Nitrogen) 30 mg/dL (8.4-25.7); Calc. Creatinine Clearance 44 mL/min (70-130); Calcium 8.5 mg/dL (7.8-10.44); Carbon Dioxide 24 mmol/L (23-31); Chloride 103 mmol/L (98-107); Estimated GFR-MDRD 53; Glucose 127 mg/dL (83-110); Potassium 3.7 mmol/L (3.5-5.1); Sodium 136 mmol/L (136-145)
--- NOTE | 2017-09-20 09:33 | PDOC.CTH ---
<Beth Toro - Last Filed: 09/20/17 09:31> Cardiology Progress Note - Subjective EP Progress Note Patient doing well this morning. Denies any perceived AF since Wednesday. No new cardiac complaints. Up walking in room without dizziness or lightheadedness. Pain under control. Reports feeling mentally hazy from narcotics he received over the weekend. 10 point ROS negative - Objective Vital Signs Temp Pulse Resp BP BP Pulse Ox 09/20/17 04:00 98.3 F 72 18 183/84 H 96 09/19/17 21:36 65 164/72 H 09/19/17 21:35 98.1 F 66 18 164/72 H 98 Weight 164 lb 12.8 oz 09/19/17 09/20/17 09/21/17 06:59 06:59 06:59 Intake Total 1050 Output Total 350 Balance 700 - Physical Examination General/Neuro: alert & oriented x3, NAD, other: Neck: carotid US brisk, no JVD present Lungs: CTA, unlabored respirations Heart: PMI normal, RRR Abdomen: no HSM, other: (incisional pain) - Telemetry Telemetry Rhythm: NSR - Labs Result Diagrams: 09/20/17 04:16 09/20/17 04:16 - Assessment/Plan 1. Paroxysmal AFib- maintained NSR over weekend on higher dose of sotalol. 2. Oral Anticoagulation- held over weekend r/t bleeding from graft site, resume as soon as bleeding is resolved 3. Anemia- significant drop a few days ago and continues to trend down. Hematoma at graft origin found by CT. Managed by surgeon, pt to receive blood tranfusion today 4. Previous bradycardia-rates well controlled without significant bradycardia despite increased betablocker therapy. Minimum HR in 50s over weekend. 5. JACE-creat worsened over weekend and is now trending down. This may be problematic with continued sotalol therapy. Continue to monitor at this time. <Juancarlos Mcgee - Last Filed: 09/20/17 18:27> Cardiology Progress Note - Objective Vital Signs Temp Pulse Pulse Resp BP BP Pulse Ox 09/20/17 16:23 98.1 F 60 18 144/67 H 96 09/20/17 11:46 97.8 F 58 L 16 114/78 99 09/20/17 10:50 98.8 F 61 16 09/20/17 10:34 98.1 F 63 16 148/66 H 100 09/20/17 09:37 97.8 F 58 L 16 98 09/20/17 09:36 67 18 162/72 H 98 Weight 167 lb 6 oz 09/19/17 09/20/17 09/21/17 06:59 06:59 06:59 Intake Total 1050 1630 Output Total 350 120 Balance 700 1510 - Labs Result Diagrams: 09/20/17 04:16 09/20/17 04:16 Attending Addendum - Attending Addendum I personally evaluated the patient and discussed the management with Ms Toro. 1. Paroxysmal AFib- maintained NSR over weekend on higher dose of sotalol. 2. Oral Anticoagulation- held over weekend r/t bleeding from graft site, resume as soon as bleeding is resolved 3. Anemia- significant drop a few days ago and continues to trend down. Hematoma at graft origin found by CT. Managed by surgeon, pt to receive blood tranfusion today 4. Previous bradycardia-rates well controlled without significant bradycardia despite increased betablocker therapy. Minimum HR in 50s over weekend. 5. JACE-creat worsened over weekend and is now trending down. This may be problematic with continued sotalol therapy. Continue to monitor at this time. Will sign off and see pt back at office in 6-12 weeks.
[2017-09-20] MEDS: Sotalol HCl 80 MG TAB PO SCH ×2 (09:42→21:10)
[2017-09-20] MEDS: Polyethylene Glycol 3350 17 GM Packet PO SCH (09:42)
[2017-09-20] MEDS: Sodium Chloride 0.9% 1,000 ML IV SCH ×2 (10:38→23:45)
--- NOTE | 2017-09-20 10:53 | PDOC.CTH ---
<Jemal Hearn - Last Filed: 09/20/17 16:03> Cardiology Progress Note - Objective Vital Signs Temp Pulse Pulse Resp BP BP Pulse Ox 09/20/17 11:46 97.8 F 58 L 16 114/78 99 09/20/17 10:50 98.8 F 61 16 09/20/17 10:34 98.1 F 63 16 148/66 H 100 09/20/17 09:37 97.8 F 58 L 16 98 09/20/17 09:36 67 18 162/72 H 98 Weight 167 lb 6 oz 09/19/17 09/20/17 09/21/17 06:59 06:59 06:59 Intake Total 1050 0 Output Total 350 Balance 700 0 - Labs Result Diagrams: 09/20/17 04:16 09/20/17 04:16 - Assessment/Plan Pt. seen and eval. by me. The CT scan indicated a small hematoma at the surgery site but prob. not large enough to cause the decrease in the H/H to the degree that it has dropped. Will recheck tomorrow after transfusion. He remains in NSR. With the increase in the creat. I will decrease the Sotaolol with the risk of Torsades. i agree with the A/P by the SPEECH ASSISTANT except there is no significant retroperitoneal bleed to account for the decrease in the H/H. Chest clear, RRR. <Eleni Quinteros - Last Filed: 09/20/17 16:36> Cardiology Progress Note - Subjective The pt seen and examined. No overnight events. No cardiac complaints. Less pain to back today. He still complains of soreness to ABD surgical site. - Objective Vital Signs Temp Pulse Pulse Resp BP BP Pulse Ox 09/20/17 10:34 98.1 F 63 16 148/66 H 100 09/20/17 09:36 67 18 162/72 H 98 09/20/17 04:00 98.3 F 72 18 183/84 H 96 Weight 167 lb 6 oz 09/19/17 09/20/17 09/21/17 06:59 06:59 06:59 Intake Total 1050 0 Output Total 350 Balance 700 0 - Physical Examination General/Neuro: alert & oriented x3 Neck: no JVD present Extremities: other: (2+ pulses in BLE) - Labs Result Diagrams: 09/20/17 04:16 09/20/17 04:16 - Assessment/Plan 1. Severe PAD with S/P Aorto Lt external Iliac and Rt common Fem Artery bypass & Rt common Fem and profunda femoris endarterectomy on 09/14/17 - stable with Fentaly CAREER DEVELOPMENT CONSULTANT; managed by CV surgeon. 2. Paroxysmal Afib - Remains SR since over last weekend with HR 50-60s. On Stalol 120mg BID; on ASA at this time. Eliquis was started on 09/18/17 and stopped on 09/19/17 due to hematoma to Rt fem graft area; Cont. monitor on tele ; followed by EP 3. HTN - Stable with current medication; cont. monitor 4. Hyperlipidemia - on Statin; 5. s/p Rt CEA in 2000 - stable; cont. monitor 6. JACE - Cr 1.55 today; Instructed the pt to drink more fluid today; 7. Anemia - Hgb 7.3 today; possible 1 PRBC tx today MAR reviewed Review of Systems - Review of Systems Constitutional: reports: no symptoms reported EENTM: reports: no symptoms reported Respiratory: reports: no symptoms reported Cardiac (ROS): reports: no symptoms reported ABD/GI: reports: see HPI : reports: no symptoms reported Musculoskeletal: reports: no symptoms reported
--- NOTE | 2017-09-20 14:40 | PDOC.PN ---
- Subjective Encounter Start Date: 09/20/17 Encounter Start Time: 14:38 Subjective: feels well.no new complaints.appetite better.pain controlled -: receiving blood transfusion w/o difficulty - Objective MAR Reviewed: Yes Vital Signs & Weight: Vital Signs (12 hours) Temp Pulse Pulse Resp BP BP Pulse Ox 09/20/17 11:46 97.8 F 58 L 16 114/78 99 09/20/17 10:50 98.8 F 61 16 09/20/17 10:34 98.1 F 63 16 148/66 H 100 09/20/17 09:37 97.8 F 58 L 16 98 09/20/17 09:36 67 18 162/72 H 98 09/20/17 04:00 98.3 F 72 18 183/84 H 96 Weight Weight 167 lb 6 oz Most Recent Monitor Data Heart Rate from ECG 66 NIBP 112/56 NIBP BP-Mean 79 Respiration from ECG 19 SpO2 93 I&O: 09/19/17 09/20/17 09/21/17 06:59 06:59 06:59 Intake Total 1050 0 Output Total 350 Balance 700 0 Result Diagrams: 09/21/17 04:12 09/21/17 04:12 Additional Labs: Laboratory Tests 09/14/17 09/15/17 09/16/17 06:43 05:07 04:21 Creatinine 1.33 H 1.88 H 1.65 H 09/17/17 09/19/17 09/20/17 04:23 04:23 04:16 Creatinine 1.27 2.08 H 1.55 H Phys Exam - Physical Examination Constitutional: NAD HEENT: PERRLA, moist MMs, sclera anicteric, oral pharynx no lesions Neck: no nodes, no JVD, supple, full ROM Respiratory: no wheezing, no rales, no rhonchi, clear to auscultation bilateral Cardiovascular: RRR, no significant murmur Gastrointestinal: soft, non-tender, no distention, positive bowel sounds Musculoskeletal: no edema, pulses present Neurological: non-focal, normal sensation, moves all 4 limbs Psychiatric: normal affect, A&O x 3 Skin: no rash Dx/Plan (1) JACE (acute kidney injury) Code(s): N17.9 - ACUTE KIDNEY FAILURE, UNSPECIFIED Status: Acute Comment: improved. (2) Acute back pain Code(s): M54.9 - DORSALGIA, UNSPECIFIED Status: Resolved Qualifiers: Back pain location: low back pain Back pain laterality: right (3) Blood loss anemia Code(s): D50.0 - IRON DEFICIENCY ANEMIA SECONDARY TO BLOOD LOSS (CHRONIC) Status: Acute Comment: s/p Blood transfusion .eliquis on hold (4) Atrial flutter Code(s): I48.92 - UNSPECIFIED ATRIAL FLUTTER Status: Chronic Comment: controlled on Sotalol.Holding Eliquis.cardiology following.EP following (5) PVD (peripheral vascular disease) Code(s): I73.9 - PERIPHERAL VASCULAR DISEASE, UNSPECIFIED Status: Chronic (6) S/P femoral-popliteal bypass surgery Code(s): Z95.828 - PRESENCE OF OTHER VASCULAR IMPLANTS AND GRAFTS Status: Acute Comment: 09/14/17 (7) Hematoma complicating a procedure Code(s): BLW8705 - Status: Acute Comment: At site of fem-pop graft - Plan plan discussed w/ family, PT/OT, delinquency prevention social worker, out of bed/ambulate, DVT proph w/SCDs Renal Fx improving. continue IVF.monitor.avoid nephrotoxic agents -: S/P 1 unit prbs today.monitor H/H -: cont to hold eliquis in light of graft site hematoma.Cardiology/CTVS follow -: HD stable. -: will follow. care discussed w * . Review of Systems - Review of Systems Constitutional: weakness, malaise. negative: fever, chills, sweats, other Respiratory: negative: Cough, Dry, Shortness of Breath, Hemoptysis, SOB with Excertion, Pleuritic Pain, Sputum, Wheezing Cardiovascular: negative: chest pain, palpitations, orthopnea, paroxysmal nocturnal dyspnea, edema, light headedness, other Gastrointestinal: negative: Nausea, Vomiting, Abdominal Pain, Diarrhea, Constipation, Melena, Hematochezia, Other Genitourinary: negative: Dysuria, Frequency, Incontinence, Hematuria, Retention , Other Musculoskeletal: negative: Neck Pain, Shoulder Pain, Arm Pain, Back Pain, Hand Pain, Leg Pain, Foot Pain, Other Neurological: negative: Weakness, Numbness, Incoordination, Change in Speech, Confusion, Seizures, Other - Medications/Allergies Allergies/Adverse Reactions: Allergies Allergy/AdvReac Type Severity Reaction Status Date / Time codeine Allergy Verified 09/13/17 15:17 niacin Allergy Verified 09/13/17 15:19 Medications: Current Medications Acetaminophen (Tylenol) 650 mg PO Q4H PRN PRN Reason: Fever > 101.5,RAY, or mild pain Hydrocodone Bitart/Acetaminophen ([place] 10/325) 1 tab PO Q4H PRN PRN Reason: PAIN SCALE 1-4 Hydrocodone Bitart/Acetaminophen ([place] 10/325) 2 tab PO Q4H PRN PRN Reason: PAIN SCALE 5-10 Last Admin: 09/20/17 07:32 Dose: 2 tab Albuterol/Ipratropium (Duoneb) 3 ml NEB [id number] PRN PRN Reason: Wheezing Aspirin (Aspirin Chewable) 81 mg PO QAM [facility] Last Admin: 09/20/17 09:41 Dose: 81 mg Atorvastatin Calcium (Lipitor) 10 mg PO HS [facility] Last Admin: 09/19/17 21:37 Dose: 10 mg Cholecalciferol (Vitamin D3) 1,000 units PO DAILY [facility] Last Admin: 09/20/17 09:41 Dose: 1,000 units Cyclobenzaprine HCl (Flexeril) 10 mg PO TID PRN PRN Reason: Muscle Spasm Last Admin: 09/20/17 14:23 Dose: 10 mg Hydralazine HCl (Apresoline) 10 mg SLOW IVP Q6H PRN PRN Reason: To Keep SBP < 140 mmHG Last Admin: 09/18/17 15:43 Dose: 10 mg Sodium Chloride (Normal Saline 0.9%) 1,000 mls @ 75 mls/hr IV .[id number] [facility] Last Admin: 09/20/17 10:38 Dose: Not Given Naloxone HCl (Narcan) 0.2 mg IV Q5MIN PRN PRN Reason: Opiate Reversal Ondansetron HCl (Zofran) 4 mg IVP Q6H PRN PRN Reason: Nausea/Vomiting Last Admin: 09/20/17 03:34 Dose: 4 mg Pantoprazole Sodium (Protonix) 40 mg PO DAILY [facility] Last Admin: 09/20/17 09:41 Dose: 40 mg Polyethylene Glycol (Miralax) 17 gm PO DAILY [facility] Last Admin: 09/20/17 09:42 Dose: 17 gm Sodium Chloride (Flush - Normal Saline) 10 ml IVF Q12HR HETAL Last Admin: 09/20/17 09:42 Dose: 10 ml Sodium Chloride (Flush - Normal Saline) 10 ml IVF PRN PRN PRN Reason: Saline Flush Sotalol HCl (Betapace) 120 mg PO BID [facility] Last Admin: 09/20/17 09:42 Dose: 120 mg Trazodone HCl (Desyrel) 50 mg PO HS PRN PRN Reason: Insomnia Last Admin: 09/19/17 21:37 Dose: 50 mg
[2017-09-20] MEDS: hydrALAZINE 20 MG/ML VIAL SLOW IVP PRN (16:28)
[2017-09-20] MEDS: Atorvastatin Calcium 10 MG TAB PO SCH (21:10)
[2017-09-21 05:46] LABS: Anion Gap 12 mmol/L (10-20); BUN (Urea Nitrogen) 25 mg/dL (8.4-25.7); Calc. Creatinine Clearance 56 mL/min (70-130); Calcium 8.6 mg/dL (7.8-10.44); Carbon Dioxide 26 mmol/L (23-31); Chloride 103 mmol/L (98-107); Estimated GFR-MDRD 68; Glucose 127 mg/dL (83-110); Potassium 4.1 mmol/L (3.5-5.1); Sodium 137 mmol/L (136-145)
[2017-09-21 06:08] LABS: Band 8 % (5-11); Eosinophils 4 % (0-10); Hemoglobin 8.4 g/dL (14.0-18.0); Lymphocytes 19 % (21-51); MDiff Complete? YES; Mean Corpuscular HGB CONC 32.5 g/dL (32.0-36.0); Mean Corpuscular Hemoglobin 29.3 pg (27.0-31.0); Mean Corpuscular Volume 90.1 fl (80.0-94.0); Mean Platelet Volume 8.4 fL (7.4-10.4); Monocytes 13 % (0-10); Neutrophil 56 % (42-75); Platelet Count 198 thou/uL (130-400); RBC Distribution Width 11.6 % (11.5-14.5); Red Blood Cell (RBC) Count 2.86 mill/uL (4.70-6.10); White Blood Cell (WBC) Count 10.1 thou/uL (4.8-10.8)
[2017-09-21] MEDS ORDERED: traMADol HCl 50 MG TAB PO PRN ×2 (07:20)
[2017-09-21] MEDS: Sotalol HCl 80 MG TAB PO SCH ×2 (08:18→20:24)
--- NOTE | 2017-09-21 11:08 | PDOC.CTH ---
<Eleni Quinteros - Last Filed: 09/21/17 11:09> Cardiology Progress Note - Subjective The pt seen and examined. No overnight events. He does not have any pain to sx site, but still complains of chronic back pain. He also complains of constipation. - Objective Vital Signs Temp Pulse Resp BP BP Pulse Ox 09/21/17 08:18 82 09/21/17 07:30 98.3 F 82 14 183/79 H 97 09/21/17 03:42 97.9 F 76 12 169/72 H 96 Weight 166 lb 4.8 oz 09/20/17 09/21/17 09/22/17 06:59 06:59 06:59 Intake Total 1050 2230 Output Total 350 320 Balance 700 1910 - Physical Examination General/Neuro: alert & oriented x3 Neck: no JVD present Lungs: CTA Heart: RRR Abdomen: soft Extremities: other: (No edema; 2+ pulses to BLE) - Telemetry Telemetry Rhythm: SR 60s - Labs Result Diagrams: 09/21/17 04:12 09/21/17 04:12 - Assessment/Plan 1. Severe PAD with S/P Aorto Lt external Iliac and Rt common Fem Artery bypass & Rt common Fem and profunda femoris endarterectomy on 09/14/17 - stable; managed by CV surgeon. 2. Paroxysmal Afib - Remains SR since over last weekend with HR 60s. Stalol was decreased from 120mg to 80mg BID for risk of Torsades. On ASA at this time. Eliquis was started on 09/18/17 and stopped on 09/19/17 due to hematoma to Rt fem graft area; Cont. monitor on tele; followed by EP 3. HTN - Stable with current medication; cont. monitor 4. Hyperlipidemia - on Statin; 5. s/p Rt CEA in 2000 - stable; cont. monitor 6. JACE - Cr 1.55 today; Instructed the pt to drink more fluid today; 7. Anemia - Hgb 8.6 today after 1 PRBC tx on 09/20/17 MAR reviewed Review of Systems - Review of Systems Constitutional: reports: no symptoms reported EENTM: reports: no symptoms reported Respiratory: reports: no symptoms reported Cardiac (ROS): reports: no symptoms reported ABD/GI: reports: see HPI, poor appetite Musculoskeletal: reports: see HPI <Hearn,G Ludin - Last Filed: 09/21/17 17:47> Cardiology Progress Note - Objective Vital Signs Temp Pulse Resp BP BP Pulse Ox 09/21/17 15:55 98 F 75 18 138/65 95 09/21/17 12:33 184/77 H 09/21/17 11:15 97.8 F 74 19 197/88 H 98 09/21/17 08:18 82 09/21/17 07:30 98.3 F 82 14 183/79 H 97 Weight 166 lb 4.8 oz 09/20/17 09/21/17 09/22/17 06:59 06:59 06:59 Intake Total 1050 2230 Output Total 350 320 Balance 700 1910 - Labs Result Diagrams: 09/21/17 04:12 09/21/17 04:12 - Assessment/Plan Pt. seen and eval. by me. I agree with the A/P by the [employer]. he still has some back pain but no abd. or chest pain. Chest clear, RRR. He is maintaining NSR. Continue the Sotolol at 80mg bid. Plan for d/c tomorrow.
[2017-09-21] MEDS: Polyethylene Glycol 3350 17 GM Packet PO SCH (11:19)
[2017-09-21] MEDS: Cyclobenzaprine 10 MG TAB PO PRN ×2 (11:20→22:09)
[2017-09-21] MEDS ORDERED: Losartan 25 MG TAB PO SCH ×2 (12:52→13:15)
--- NOTE | 2017-09-21 14:09 | PDOC.PN ---
- Subjective Encounter Start Date: 09/21/17 Encounter Start Time: 14:07 Subjective: c/o back pain again - Objective MAR Reviewed: Yes Vital Signs & Weight: Vital Signs (12 hours) Temp Pulse Resp BP BP Pulse Ox 09/21/17 12:33 184/77 H 09/21/17 11:15 97.8 F 74 19 197/88 H 98 09/21/17 08:18 82 09/21/17 07:30 98.3 F 82 14 183/79 H 97 09/21/17 03:42 97.9 F 76 12 169/72 H 96 Weight Weight 166 lb 4.8 oz Most Recent Monitor Data Heart Rate from ECG 66 NIBP 112/56 NIBP BP-Mean 79 Respiration from ECG 19 SpO2 93 I&O: 09/20/17 09/21/17 09/22/17 06:59 06:59 06:59 Intake Total 1050 2230 Output Total 350 320 Balance 700 1910 Result Diagrams: 09/21/17 04:12 09/21/17 04:12 Additional Labs: Laboratory Tests 09/14/17 09/14/17 09/15/17 06:43 06:43 05:07 Hgb 11.9 L 10.2 L Creatinine 1.33 H 09/16/17 09/17/17 09/17/17 04:21 04:23 04:23 Hgb 9.2 L Creatinine 1.65 H 1.27 09/19/17 09/19/17 09/19/17 04:23 04:23 14:42 Hgb 7.9 L 8.3 L Creatinine 2.08 H 09/19/17 09/20/17 09/20/17 20:40 04:16 04:16 Hgb 7.9 L 7.3 L Creatinine 1.55 H 09/21/17 09/21/17 04:12 04:12 Hgb 8.4 L Creatinine 1.25 Phys Exam - Physical Examination Constitutional: NAD HEENT: PERRLA, moist MMs, sclera anicteric, oral pharynx no lesions Neck: no nodes, no JVD, supple, full ROM Respiratory: no wheezing, no rales, no rhonchi, clear to auscultation bilateral Cardiovascular: RRR, no significant murmur Gastrointestinal: soft, non-tender, no distention, positive bowel sounds Musculoskeletal: no edema, pulses present Neurological: non-focal, normal sensation, moves all 4 limbs Psychiatric: normal affect, A&O x 3 Skin: no rash Dx/Plan (1) JACE (acute kidney injury) Code(s): N17.9 - ACUTE KIDNEY FAILURE, UNSPECIFIED Status: Acute Comment: improved. (2) Acute back pain Code(s): M54.9 - DORSALGIA, UNSPECIFIED Status: Resolved Qualifiers: Back pain location: low back pain Back pain laterality: right (3) Blood loss anemia Code(s): D50.0 - IRON DEFICIENCY ANEMIA SECONDARY TO BLOOD LOSS (CHRONIC) Status: Acute Comment: s/p Blood transfusion .eliquis on hold (4) Atrial flutter Code(s): I48.92 - UNSPECIFIED ATRIAL FLUTTER Status: Chronic Comment: controlled on Sotalol.Holding Eliquis.cardiology following.EP following (5) PVD (peripheral vascular disease) Code(s): I73.9 - PERIPHERAL VASCULAR DISEASE, UNSPECIFIED Status: Chronic (6) S/P femoral-popliteal bypass surgery Code(s): Z95.828 - PRESENCE OF OTHER VASCULAR IMPLANTS AND GRAFTS Status: Acute Comment: 09/14/17 (7) Hematoma complicating a procedure Code(s): KJC2643 - Status: Acute Comment: At site of fem-pop graft - Plan PT/OT, respiratory therapy, incentive spirometry, out of bed/ambulate, DVT proph w/SCDs Stable.H/H Ok.renal Fx improved. -: tramadol prn for pain. -: ? restart eliquis-will defer to CTVS & EP. -: will follow as long as stays in house * . Review of Systems - Review of Systems Constitutional: negative: fever, chills, sweats, weakness, malaise, other ENT: negative: Ear Pain, Ear Discharge, Nose Pain, Nose Discharge, Nose Congestion, Mouth Pain, Mouth Swelling, Throat Pain, Throat Swelling, Other Cardiovascular: negative: chest pain, palpitations, orthopnea, paroxysmal nocturnal dyspnea, edema, light headedness, other Gastrointestinal: Nausea. negative: Vomiting, Abdominal Pain, Diarrhea, Constipation, Melena, Hematochezia, Other Genitourinary: negative: Dysuria, Frequency, Incontinence, Hematuria, Retention , Other Musculoskeletal: Back Pain. negative: Neck Pain, Shoulder Pain, Arm Pain, Hand Pain, Leg Pain, Foot Pain, Other Neurological: negative: Weakness, Numbness, Incoordination, Change in Speech, Confusion, Seizures, Other - Medications/Allergies Allergies/Adverse Reactions: Allergies Allergy/AdvReac Type Severity Reaction Status Date / Time codeine Allergy Verified 09/13/17 15:17 niacin Allergy Verified 09/13/17 15:19 Medications: Current Medications Acetaminophen (Tylenol) 650 mg PO Q4H PRN PRN Reason: Fever > 101.5,RAY, or mild pain Albuterol/Ipratropium (Duoneb) 3 ml NEB [id number] PRN PRN Reason: Wheezing Amlodipine Besylate (Norvasc) 2.5 mg PO HS [facility] Aspirin (Aspirin Chewable) 81 mg PO QAM [facility] Last Admin: 09/21/17 08:18 Dose: 81 mg Atorvastatin Calcium (Lipitor) 10 mg PO HS [facility] Last Admin: 09/20/17 21:10 Dose: Not Given Cholecalciferol (Vitamin D3) 1,000 units PO DAILY [facility] Last Admin: 09/21/17 08:18 Dose: 1,000 units Cyclobenzaprine HCl (Flexeril) 10 mg PO TID PRN PRN Reason: Muscle Spasm Last Admin: 09/21/17 11:20 Dose: 10 mg Hydralazine HCl (Apresoline) 10 mg SLOW IVP Q6H PRN PRN Reason: To Keep SBP < 140 mmHG Last Admin: 09/20/17 16:28 Dose: 10 mg Losartan Potassium (Cozaar) 25 mg PO DAILY [facility] Naloxone HCl (Narcan) 0.2 mg IV Q5MIN PRN PRN Reason: Opiate Reversal Ondansetron HCl (Zofran) 4 mg IVP Q6H PRN PRN Reason: Nausea/Vomiting Last Admin: 09/20/17 03:34 Dose: 4 mg Pantoprazole Sodium (Protonix) 40 mg PO DAILY [facility] Last Admin: 09/21/17 08:18 Dose: 40 mg Polyethylene Glycol (Miralax) 17 gm PO DAILY [facility] Last Admin: 09/21/17 11:19 Dose: Not Given Sodium Chloride (Flush - Normal Saline) 10 ml IVF Q12HR [facility] Last Admin: 09/21/17 08:19 Dose: 10 ml Sodium Chloride (Flush - Normal Saline) 10 ml IVF PRN PRN PRN Reason: Saline Flush Sotalol HCl (Betapace) 80 mg PO BID [facility] Last Admin: 09/21/17 08:18 Dose: 80 mg Tramadol HCl (Ultram) 50 mg PO Q6H PRN PRN Reason: Mild Pain (1-3) Tramadol HCl (Ultram) 100 mg PO Q6H PRN PRN Reason: Moderate Pain (4-6) Last Admin: 09/21/17 08:18 Dose: 100 mg Trazodone HCl (Desyrel) 50 mg PO HS PRN PRN Reason: Insomnia Last Admin: 09/19/17 21:37 Dose: 50 mg
--- NOTE | 2017-09-21 14:45 | PDOC.CTH ---
Cardiology Progress Note - Subjective EP progress note: Patient did well overnight. No complaints at this time. Up ambulating in room and hallway. - Objective Vital Signs Temp Pulse Resp BP BP Pulse Ox 09/21/17 12:33 184/77 H 09/21/17 11:15 97.8 F 74 19 197/88 H 98 09/21/17 08:18 82 09/21/17 07:30 98.3 F 82 14 183/79 H 97 09/21/17 03:42 97.9 F 76 12 169/72 H 96 Weight 166 lb 4.8 oz 09/20/17 09/21/17 09/22/17 06:59 06:59 06:59 Intake Total 1050 2230 Output Total 350 320 Balance 700 1910 - Physical Examination General/Neuro: alert & oriented x3, NAD Neck: carotid US brisk, no JVD present Lungs: CTA, unlabored respirations Heart: PMI normal, RRR Abdomen: no HSM, NT/ND - Telemetry Telemetry Rhythm: NSR - Labs Result Diagrams: 09/21/17 04:12 09/21/17 04:12 - Assessment/Plan 1. PAF- Currently NSR. Sotalol reduced to 80mg BID yesterday. Patient in AFib from [id number] this AM. 2. Oral anticoagulation- Eliquis remains on hold due to graft hematoma/ bleeding. Resume as soon as cleared by CTVS 3. Anemia- transfused 1 PRBC yesterday. Hgb 8.6 today.
[2017-09-21] MEDS: Atorvastatin Calcium 10 MG TAB PO SCH (20:24)
[2017-09-21] MEDS ORDERED: Non-Formulary Item 1 EACH (Amlodipine Besylate [Amlodipine Besylate] 1 TAB) PO SCH (21:00)
[2017-09-21] MEDS ORDERED: Amlodipine 5 MG TAB PO SCH (21:00)
[2017-09-22] MEDS: Cyclobenzaprine 10 MG TAB PO PRN (05:25)
--- NOTE | 2017-09-22 07:15 | DIS ---
DATE OF ADMISSION: 09/14/2017 DATE OF DISCHARGE: 09/22/2017 DIAGNOSIS: Peripheral vascular disease. PROCEDURES: Aorto right femoral and left external iliac artery bypass. DESCRIPTION OF HOSPITAL STAY: Mr. Whyte was admitted for elective arterial bypass. Postoperative ly, he initially did well. He eventually began to have back pain, which was unrelated to his surgery . Multiple physicians were consulted and no cause of the back pain was able to be uncovered. He was started on Flexeril, which seemed to completely relieve his back pain. An MRI of the spine, which w as essentially normal. Other than that, he has done well. He is being discharged to home in good co ndition and to follow up with me in 2 weeks. His Eliquis has been held as the patient has been in si nus rhythm and with risk of bleeding, I would not like to restart that at this point. We will see osiel interiano back in the office in 2 weeks and probably restart his Eliquis at that time.
[2017-09-22] MEDS ORDERED: Losartan 25 MG TAB PO SCH (09:00)
--- NOTE | 2017-09-22 09:19 | PDOC.CTH ---
Cardiology Progress Note - Subjective Pt. without any events last night. back pain is better. He remains in NSR - Objective Vital Signs Temp Pulse Resp BP Pulse Ox 09/22/17 04:00 97.6 F 68 18 182/74 H 96 Weight 163 lb 09/21/17 09/22/17 09/23/17 06:59 06:59 06:59 Intake Total 2230 Output Total 320 Balance 1910 - Physical Examination General/Neuro: alert & oriented x3 Neck: carotid US brisk Lungs: CTA Heart: RRR Abdomen: NT/ND, soft Other PE findings: pedal pulses palpable bilat. - Labs Result Diagrams: 09/21/17 04:12 09/21/17 04:12 - Assessment/Plan PVD: stable s/p Aorta-iliac and aorta-femoral bypass. Afib -> NSR. Continue Sotolol.Resume eliquis if Hgb. stable. HTN: stable Chronic back pain: stable today. Anemia: recheck Hgb. this AM. If Hgb stable then ok to d/c from a cardiac standpoint. Review of Systems - Review of Systems EENTM: reports: no symptoms reported Respiratory: reports: no symptoms reported Cardiac (ROS): reports: no symptoms reported ABD/GI: reports: no symptoms reported, poor appetite : reports: no symptoms reported Musculoskeletal: reports: no symptoms reported Neurological: reports: no symptoms reported Hematologic/Lymphatic: reports: no symptoms reported
[2017-09-22] MEDS ORDERED: Apixaban 5 MG TAB PO SCH ×3 (09:30→21:00)
[2017-09-22 09:49] LABS: Hemoglobin 7.9 g/dL (14.0-18.0)
[2017-09-22] MEDS: Sotalol HCl 80 MG TAB PO SCH (11:51)
[2017-09-22] MEDS: Polyethylene Glycol 3350 17 GM Packet PO SCH (11:52)
[2017-09-22 13:03] VITALS: TEMP 98.6
--- NOTE | 2017-09-22 14:34 | PDOC.PN ---
- Subjective Encounter Start Date: 09/22/17 Encounter Start Time: 14:32 Subjective: feels better.on and off back pain,better w flexeril - Objective MAR Reviewed: Yes Vital Signs & Weight: Vital Signs (12 hours) Temp Pulse Resp BP BP Pulse Ox 09/22/17 07:25 98.6 F 71 16 186/79 H 99 09/22/17 04:00 97.6 F 68 18 182/74 H 96 Weight Weight 163 lb Most Recent Monitor Data Heart Rate from ECG 66 NIBP 112/56 NIBP BP-Mean 79 Respiration from ECG 19 SpO2 93 I&O: 09/21/17 09/22/17 09/23/17 06:59 06:59 06:59 Intake Total 2230 Output Total 320 Balance 1910 Result Diagrams: 09/22/17 09:31 09/21/17 04:12 Additional Labs: Laboratory Tests 09/14/17 09/15/17 09/17/17 06:43 05:07 04:23 Hgb 11.9 L 10.2 L 9.2 L 09/19/17 09/19/17 09/19/17 04:23 14:42 20:40 Hgb 7.9 L 8.3 L 7.9 L 09/20/17 09/21/17 09/22/17 04:16 04:12 09:31 Hgb 7.3 L 8.4 L 7.9 L Phys Exam - Physical Examination Constitutional: NAD HEENT: PERRLA, moist MMs, sclera anicteric, oral pharynx no lesions Neck: no nodes, no JVD, supple, full ROM Respiratory: no wheezing, no rales, no rhonchi, clear to auscultation bilateral Cardiovascular: RRR, no significant murmur Gastrointestinal: soft, non-tender, no distention, positive bowel sounds Musculoskeletal: no edema, pulses present Neurological: non-focal, normal sensation, moves all 4 limbs Psychiatric: normal affect, A&O x 3 Skin: no rash Dx/Plan (1) JACE (acute kidney injury) Code(s): N17.9 - ACUTE KIDNEY FAILURE, UNSPECIFIED Status: Acute Comment: improved. (2) Acute back pain Code(s): M54.9 - DORSALGIA, UNSPECIFIED Status: Resolved Qualifiers: Back pain location: low back pain Back pain laterality: right (3) Blood loss anemia Code(s): D50.0 - IRON DEFICIENCY ANEMIA SECONDARY TO BLOOD LOSS (CHRONIC) Status: Acute Comment: s/p Blood transfusion .eliquis on hold (4) Atrial flutter Code(s): I48.92 - UNSPECIFIED ATRIAL FLUTTER Status: Chronic Comment: controlled on Sotalol.Holding Eliquis.cardiology following.EP following (5) PVD (peripheral vascular disease) Code(s): I73.9 - PERIPHERAL VASCULAR DISEASE, UNSPECIFIED Status: Chronic (6) S/P femoral-popliteal bypass surgery Code(s): Z95.828 - PRESENCE OF OTHER VASCULAR IMPLANTS AND GRAFTS Status: Acute Comment: 09/14/17 (7) Hematoma complicating a procedure Code(s): JFG0807 - Status: Acute Comment: At site of fem-pop graft - Plan plan discussed w/ family, DVT proph w/SCDs HD stable.recoomend holdind eliquis for hematoma at graft site -: add feSO4 on DC.H/H stable -: OK to DC form IM stand point .Felexeril script provided -: pt advised to f/u w PCP. * . Review of Systems - Review of Systems Constitutional: weakness. negative: fever, chills, sweats, malaise, other Respiratory: negative: Cough, Dry, Shortness of Breath, Hemoptysis, SOB with Excertion, Pleuritic Pain, Sputum, Wheezing Cardiovascular: negative: chest pain, palpitations, orthopnea, paroxysmal nocturnal dyspnea, edema, light headedness, other Genitourinary: negative: Dysuria, Frequency, Incontinence, Hematuria, Retention , Other Musculoskeletal: Back Pain. negative: Neck Pain, Shoulder Pain, Arm Pain, Hand Pain, Leg Pain, Foot Pain, Other Skin: negative: Rash, Lesions, David, Bruising, Other Neurological: negative: Weakness, Numbness, Incoordination, Change in Speech, Confusion, Seizures, Other - Medications/Allergies Allergies/Adverse Reactions: Allergies Allergy/AdvReac Type Severity Reaction Status Date / Time codeine Allergy Verified 09/13/17 15:17 niacin Allergy Verified 09/13/17 15:19 Medications: Current Medications Acetaminophen (Tylenol) 650 mg PO Q4H PRN PRN Reason: Fever > 101.5,RAY, or mild pain Albuterol/Ipratropium (Duoneb) 3 ml NEB [id number] PRN PRN Reason: Wheezing Amlodipine Besylate (Norvasc) 2.5 mg PO HS [facility] Last Admin: 09/21/17 20:25 Dose: 2.5 mg Apixaban (Eliquis) 5 mg PO BID [facility] Aspirin (Aspirin Chewable) 81 mg PO QAM [facility] Last Admin: 09/22/17 11:51 Dose: 81 mg Atorvastatin Calcium (Lipitor) 10 mg PO HS [facility] Last Admin: 09/21/17 20:24 Dose: 10 mg Cholecalciferol (Vitamin D3) 1,000 units PO DAILY [facility] Last Admin: 09/22/17 11:51 Dose: 1,000 units Cyclobenzaprine HCl (Flexeril) 10 mg PO TID PRN PRN Reason: Muscle Spasm Last Admin: 09/22/17 05:25 Dose: 10 mg Hydralazine HCl (Apresoline) 10 mg SLOW IVP Q6H PRN PRN Reason: To Keep SBP < 140 mmHG Last Admin: 09/20/17 16:28 Dose: 10 mg Losartan Potassium (Cozaar) 25 mg PO DAILY [facility] Last Admin: 09/22/17 11:50 Dose: 25 mg Naloxone HCl (Narcan) 0.2 mg IV Q5MIN PRN PRN Reason: Opiate Reversal Ondansetron HCl (Zofran) 4 mg IVP Q6H PRN PRN Reason: Nausea/Vomiting Last Admin: 09/20/17 03:34 Dose: 4 mg Pantoprazole Sodium (Protonix) 40 mg PO DAILY [facility] Last Admin: 09/22/17 11:51 Dose: Not Given Polyethylene Glycol (Miralax) 17 gm PO DAILY [facility] Last Admin: 09/22/17 11:52 Dose: Not Given Sodium Chloride (Flush - Normal Saline) 10 ml IVF Q12HR [facility] Last Admin: 09/22/17 11:52 Dose: 10 ml Sodium Chloride (Flush - Normal Saline) 10 ml IVF PRN PRN PRN Reason: Saline Flush Sotalol HCl (Betapace) 80 mg PO BID [facility] Last Admin: 09/22/17 11:51 Dose: 80 mg Tramadol HCl (Ultram) 50 mg PO Q6H PRN PRN Reason: Mild Pain (1-3) Tramadol HCl (Ultram) 100 mg PO Q6H PRN PRN Reason: Moderate Pain (4-6) Last Admin: 09/21/17 08:18 Dose: 100 mg Trazodone HCl (Desyrel) 50 mg PO HS PRN PRN Reason: Insomnia Last Admin: 09/19/17 21:37 Dose: 50 mg
[2017-09-22 15:43] VITALS: BP 166/72
--- NOTE | 2017-11-15 21:14 | EKG ---
Test Reason : PREOP Blood Pressure : / mmHG Vent. Rate : 076 BPM Atrial Rate : 102 BPM P-R Int : 000 ms QRS Dur : 088 ms QT Int : 398 ms P-R-T Axes : 000 059 019 degrees QTc Int : 447 ms Atrial fibrillation Abnormal ECG When compared with ECG of 24-MAR-2006 07:46, Atrial fibrillation has replaced Sinus rhythm Vent. rate has increased BY 27 BPM Confirmed by LONNIE HANSON M.D. ([id number]) on 11/15/2017 9:14:31 PM Referred By: Иван GARZA Confirmed By:LONNIE HANSON M.D.
--- NOTE | 2017-11-15 21:55 | EKG ---
Test Reason : Blood Pressure : / mmHG Vent. Rate : 079 BPM Atrial Rate : 079 BPM P-R Int : 124 ms QRS Dur : 088 ms QT Int : 380 ms P-R-T Axes : 053 057 027 degrees QTc Int : 435 ms Normal sinus rhythm Normal ECG When compared with ECG of 14-SEP-2017 06:43, (Unconfirmed) Sinus rhythm has replaced Atrial fibrillation Confirmed by LONNIE HANSON M.D. ([id number]) on 11/15/2017 9:55:26 PM Referred By: [facility] Confirmed By:LONNIE HANSON M.D.
--- NOTE | 2018-01-11 14:57 | ADD-OP ---
ADDENDUM: CORRECTIONS TO PREVIOUS OPERATIVE REPORT SURGEON: Scott Miranda M.D. PLOW HOLDER SURGEON: Fransisco De La Torre M.D.
== END 2017-09-22 15:30 | disposition home or self-care (01) | DRG 271 ==
LOC: EEVIPCON 05:48 → SURG A 05:48 → EDSTATUS 12:10 → CCU 12:23 → 2NO 09-15 10:07
PROVIDERS: ADMIT Thoracic Surgery (Cardiothoracic Vascular Surgery); ATTEND Thoracic Surgery (Cardiothoracic Vascular Surgery)
PROC: 041 Lower Arteries, Bypass (ICD-10-PCS; principal; 2017-09-14)
PROC: 04CK3ZZ Extirpation of Matter from Right Femoral Artery, Percutaneous Approach (ICD-10-PCS; 2017-09-14)
PROC: 30233N1 Transfusion of Nonautologous Red Blood Cells into Peripheral Vein, Percutaneous Approach (ICD-10-PCS; 2017-09-20)
DX: I70.213 Atherosclerosis of native arteries of extremities with intermittent claudication, bilateral legs (principal); N17.9 Acute kidney failure, unspecified; E87.2 Acidosis; I48.0 Paroxysmal atrial fibrillation; I48.92 Unspecified atrial flutter; L76.32 Postprocedural hematoma of skin and subcutaneous tissue following other procedure; M54.5 Low back pain; I10 Essential (primary) hypertension; E78.5 Hyperlipidemia, unspecified; Y83.2 Surgical operation with anastomosis, bypass or graft as the cause of abnormal reaction of the patient, or of later complication, without mention of misadventure at the time of the procedure; D50.0 Iron deficiency anemia secondary to blood loss (chronic)
CPT/HCPCS: 36415; 36416; 36430; 71046; 72148; 74176; 80048; 82565; 85014; 85018; 85025; 85049; 85610; 85730; 86850; 86900; 86901; 93005; 93010; J2270; A4216; G8978-GP-CJ; G8979-GP-CI; J0360; J1100; J1642; J1644; J1650; J1885; J2001; J2405; J2704; J2720; J3010; J7050; P9016

== ENCOUNTER 2020-05-02 09:03 | Outpatient (CLI) | payer MEDICARE ==
--- NOTE | 2020-05-02 11:54 | PET ---
EXAM: PET/CT HISTORY: Solitary pulmonary nodule seen on CT chest dated 04/05/2020 TECHNIQUE: PET scanning with CT attenuation correction was performed from the base of the brain to the proximal thighs following the intravenous administration of 11 millicuries [id number]. COMPARISON: None. CORRELATION: CT chest dated 04/05/2020 FINDINGS: There is hypermetabolic activity in the 1.8 cm spiculated mass in the right upper lobe with an SUV of 6.4. No lindsay hypermetabolism is seen in the neck, mediastinum, hilar regions, axillary, abdomen or pelvis . No hypermetabolic liver, adrenal or skeletal lesions are seen. There is physiologic activity in the heart, GI and tracts and the visualized portions of the brain . The CT scan used for attenuation correction demonstrates no evidence of pleural effusions or ascites. 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
== END 2020-05-02 09:04 | disposition home or self-care (01) ==
LOC: PET 09:03
PROVIDERS: ATTEND Internal Medicine
DX: R93.89 Abnormal findings on diagnostic imaging of other specified body structures (principal); C34.11 Malignant neoplasm of upper lobe, right bronchus or lung
CPT/HCPCS: 78815; A9552

== ENCOUNTER 2022-04-22 07:52 | Outpatient (CLI) | payer MEDICARE | END 2022-04-22 07:53 | disposition home or self-care (01) | LOC: BICULT 07:52 | PROVIDERS: ATTEND Internal Medicine Nephrology | DX: I12.9 Hypertensive chronic kidney disease with stage 1 through stage 4 chronic kidney disease, or unspecified chronic kidney disease (principal); N18.30 Chronic kidney disease, stage 3 unspecified; N20.0 Calculus of kidney | CPT/HCPCS: 76770; 93975 ==

== ENCOUNTER 2024-03-03 19:57 | Observation (INO) | payer MEDICARE ==
[2024-03-03 21:01] LABS: Bacteria/HPF None Seen HPF (None Seen); Bilirubin Negative (Negative); Blood, Urine 1+ (Negative); CAUTI Indications for Culture Pelvic or flank pain; Clarity Clear (Clear); Glucose, Urine (Dipstick) Normal (Negative); Ketone, Urine Negative (Negative); Leukocyte Negative Leu/uL (Negative); Nitrite Negative (Negative); Protein, Urine (Dipstick) 50 mg/dL (Neg-Trace); RBC/HPF 0-3 HPF (0-3); Specific Gravity, Urine 1.023 (1.002-1.036); Squamous Epithelial None Seen HPF (0-3); Urobilinogen Normal mg/dL (Less than 2); WBC/HPF 0-3 HPF (0-3); pH, Urine 5.5 (5.0-9.0)
[2024-03-03 21:02] LABS: Urine Culture Reflex No No
[2024-03-03 21:38] LABS: #Basophils 0.03 10x3/uL (0.0-0.2); %Basophils 0.4 % (0.0-1.0); %Lymphocytes 28.6 % (21.0-51.0); %Monocytes 8.1 % (0.0-10.0); %Neutrophils 55.5 % (42.0-75.0); Hematocrit 35.2 % (42.0-52.0); Hemoglobin 11.2 g/dL (14.0-18.0); Mean Corpuscular HGB CONC 31.8 g/dL (32.0-36.0); Mean Platelet Volume 10.7 fL (7.4-10.4); Platelet Count 207 10x3/uL (130-400)
[2024-03-03 21:57] LABS: ALT (SGPT) Less than 5 U/L (8-55); AST (SGOT) 21 U/L (5-34); Alkaline Phosphatase 51 U/L (40-110); Anion Gap 11 mmol/L (10-20); BUN (Urea Nitrogen) 25 mg/dL (8.4-25.7); Bilirubin, Total 0.4 mg/dL (0.2-1.2); Calc. Creatinine Clearance 0 mL/min (70-130); Calcium 9.2 mg/dL (7.8-10.44); Carbon Dioxide 25 mmol/L (23-31); Chloride 108 mmol/L (98-107); Estimated GFR 43; Globulin 3.3 g/dL (2.4-3.5); Glucose 89 mg/dL (83-110); Magnesium 1.8 mg/dL (1.6-2.6); Potassium 4.2 mmol/L (3.5-5.1); Protein, Total 7.3 g/dL (5.8-8.1); Sodium 140 mmol/L (136-145)
[2024-03-03 22:01] LABS: Troponin I 0.083 ng/mL (< 0.028)
[2024-03-03] MEDS ORDERED: Ondansetron PF 4 MG/2 ML Vial ONE (22:16)
[2024-03-03] MEDS ORDERED: Morphine 4 MG/ML VIAL ONE (22:16)
[2024-03-03] MEDS ORDERED: hydrALAZINE 20 MG/ML VIAL ONE (23:13)
[2024-03-04] MEDS ORDERED: Ondansetron PF 4 MG/2 ML Vial IVP PRN (00:30)
[2024-03-04] MEDS ORDERED: Acetaminophen 325 MG TAB PO PRN (00:30)
[2024-03-04] MEDS ORDERED: Ondansetron ODT 4 MG TAB SL PRN (00:30)
[2024-03-04] MEDS: Sodium Chloride 0.9% 1,000 ML IV SCH (01:54)
[2024-03-04 02:05] LABS: Troponin I 0.064 ng/mL (< 0.028)
[2024-03-04 03:46] VITALS: BMI 23.3
[2024-03-04] MEDS ORDERED: traMADol HCl 50 MG TAB PO PRN (04:00)
[2024-03-04] MEDS ORDERED: hydrALAZINE 20 MG/ML VIAL SLOW IVP PRN (04:13)
[2024-03-04 06:00] LABS: #Basophils 0.03 10x3/uL (0.0-0.2); %Basophils 0.5 % (0.0-1.0); %Lymphocytes 33.6 % (21.0-51.0); %Monocytes 8.4 % (0.0-10.0); %Neutrophils 50.2 % (42.0-75.0); Hematocrit 33.1 % (42.0-52.0); Hemoglobin 10.4 g/dL (14.0-18.0); Mean Corpuscular HGB CONC 31.4 g/dL (32.0-36.0); Mean Corpuscular Hemoglobin 27.4 pg (27.0-31.0); Mean Corpuscular Volume 87.3 fL (78.0-98.0); Mean Platelet Volume 10.5 fL (7.4-10.4); Platelet Count 178 10x3/uL (130-400); RBC Distribution Width 13.2 % (11.5-14.5); Red Blood Cell (RBC) Count 3.79 mill/uL (4.70-6.10)
[2024-03-04 06:15] LABS: Anion Gap 11 mmol/L (10-20); BUN (Urea Nitrogen) 22 mg/dL (8.4-25.7); Calc. Creatinine Clearance 41 mL/min (70-130); Calcium 8.7 mg/dL (7.8-10.44); Carbon Dioxide 24 mmol/L (23-31); Chloride 107 mmol/L (98-107); Estimated GFR 49; Glucose 113 mg/dL (83-110); Potassium 3.5 mmol/L (3.5-5.1); Sodium 138 mmol/L (136-145)
[2024-03-04 06:22] LABS: Troponin I 0.075 ng/mL (< 0.028)
[2024-03-04] MEDS: Rivaroxaban 10 MG TAB PO SCH (09:13)
[2024-03-04] MEDS: Sotalol HCl 80 MG TAB PO SCH (09:13)
[2024-03-04] MEDS ORDERED: traMADol HCl 50 MG TAB ONE (10:31)
[2024-03-04 15:08] VITALS: BP 146/84; TEMP 97.9
[2024-03-04] MEDS ORDERED: Atorvastatin Calcium 10 MG TAB PO SCH (21:00)
[2024-03-04] MEDS ORDERED: Sotalol HCl 80 MG TAB PO SCH (21:00)
== END 2024-03-04 15:05 | disposition home or self-care (01) ==
LOC: ERS 19:57 → ERHOLD 03-04 00:16
PROVIDERS: ADMIT Internal Medicine; ATTEND Internal Medicine
DX: R29.898 Other symptoms and signs involving the musculoskeletal system (principal); M54.2 Cervicalgia; R53.1 Weakness; I12.9 Hypertensive chronic kidney disease with stage 1 through stage 4 chronic kidney disease, or unspecified chronic kidney disease; N18.30 Chronic kidney disease, stage 3 unspecified; R79.89 Other specified abnormal findings of blood chemistry; N17.9 Acute kidney failure, unspecified; I73.9 Peripheral vascular disease, unspecified; E78.5 Hyperlipidemia, unspecified; I48.91 Unspecified atrial fibrillation; G20.A1 Parkinson's disease without dyskinesia, without mention of fluctuations; K21.9 Gastro-esophageal reflux disease without esophagitis; Z85.118 Personal history of other malignant neoplasm of bronchus and lung; Z88.5 Allergy status to narcotic agent; Z79.01 Long term (current) use of anticoagulants; Z79.899 Other long term (current) drug therapy; Z88.8 Allergy status to other drugs, medicaments and biological substances; Z87.891 Personal history of nicotine dependence; Z95.0 Presence of cardiac pacemaker
CPT/HCPCS: 70450; 71045; 72125; 80048; 80053; 81001; 83735; 84484 ×3; 85025 ×2; 93005; J0360; J2270; J2405; J7050; 36415; 96374; 96375; G0378

== ENCOUNTER 2025-05-28 13:37 | Emergency (ER) | payer MEDICARE ==
[2025-05-28 14:17] LABS: #Basophils Less than 0.03 10x3/uL (0.0-0.2); #Eosinophils 0.03 10x3/uL (0.0-0.7); #Neutrophils 2.89 10x3/uL (1.40-6.50); %Basophils 0.3 % (0.0-1.0); %Eosinophils 0.8 % (0.0-10.0)
[2025-05-28 14:35] LABS: ALT (SGPT) Less than 7 U/L (Less than 45); AST (SGOT) 17 U/L (11-34); Albumin 3.8 g/dL (3.1-4.5); Alkaline Phosphatase 47 U/L (40-110); Anion Gap 9 mmol/L (10-20); BUN (Urea Nitrogen) 25 mg/dL (8.4-25.7); Bilirubin, Total 0.6 mg/dL (0.3-1.2); Calc. Creatinine Clearance 0 mL/min (70-130); Calcium 8.6 mg/dL (7.8-10.44); Carbon Dioxide 27 mmol/L (23-31); Chloride 109 mmol/L (98-107); Globulin 3.3 g/dL (2.4-3.5); Glucose 80 mg/dL (83-110); Potassium 4.0 mmol/L (3.5-5.1); Sodium 141 mmol/L (136-145)
[2025-05-28 14:41] LABS: #Monocytes 0.34 10x3/uL (0.11-0.59); %Lymphocytes 16.3 % (21.0-51.0); %Monocytes 8.7 % (0.0-10.0); %Neutrophils 73.4 % (42.0-75.0); Hematocrit 31.2 % (42.0-52.0); Hemoglobin 9.6 g/dL (14.0-18.0); Mean Corpuscular Hemoglobin 27.0 pg (27.0-31.0); Mean Corpuscular Volume 87.6 fL (78.0-98.0); Platelet Count 125 10x3/uL (130-400); Red Blood Cell (RBC) Count 3.56 mill/uL (4.70-6.10); White Blood Cell (WBC) Count 3.93 10x3/uL (4.8-10.8)
[2025-05-28] MEDS ORDERED: Ketorolac Tromethamine 30 MG (1 mL) VIAL ONE (15:19)
[2025-05-28 15:58] LABS: Bacteria/HPF None Seen HPF (None Seen); CAUTI Indications for Culture Pelvic or flank pain; Glucose, Urine (Dipstick) Normal (Negative); Leukocyte Negative Leu/uL (Negative); Protein, Urine (Dipstick) 30 mg/dL (Neg-Trace); RBC/HPF 0-3 HPF (0-3); Specific Gravity, Urine 1.022 (1.002-1.036); WBC/HPF 0-3 HPF (0-3)
[2025-05-28 15:59] LABS: Urine Culture Reflex No No
== END 2025-05-28 16:45 | disposition home or self-care (01) ==
LOC: ERS 13:37
DX: M62.838 Other muscle spasm (principal); I10 Essential (primary) hypertension
CPT/HCPCS: 71045; 80053; 81001; 84484; 85025; 86141; 93005; J1885; J2060; J2270; 96374; 96375